=== PATIENT | female | born 1945 | race Caucasian/White ===

== ENCOUNTER → 2016-05-21 | Outpatient (CLI) | payer OTHER, BC ==
[~2016-05-21] VITALS: Ht 157.5 cm; Wt 77.5 kg
[~2016-05-21] MED LIST: AMBIEN 5 MG TABL5 M1 PO; AWAKE200 MG PO; COQ-10100 MG PO; ENDOCET 10-3251 EACH PO; EXCEDRIN CAPLE1 EACH PO; FENTANYL PA25 MCG/HR TRANSDERM; FENTANYL PA50 MCG/HR TRANSDERM; HYDROCORTISONE3011 TP; LEVOTHYROXIN0.112 M1 PO; MS CONTIN15 MG PO; OXYCODONE HCL 55 MG PO; OXYCODONE HCL E10 MG PO; OXYCODONE HCL10 MG PO; OXYCODONE-ACET1 EAC2 PO; OXYCONTIN10 M1 PO; OXYCONTIN15 MG PO; PANTOPRAZOLE SO40 M1 PO; PROBIOTIC1 EAC1 PO; PROTONIX 20 MG20 M1 PO; VENLAFAXINE H37.5 M2 PO; ZOLOFT100 MG PO; [UNRECOGNIZED DRUG - OTHER] PO
--- NOTE | ~2016-05-21 | HPC ---
[facility] [address] [address] PAIN MANAGEMENT CONSULTATION Name: SURENDRA DILLON Room #: REG YUMIKO Shonna.#: [id number] Admission: 05/21/16 Attend Phys: Morris Ponce MD Discharge: Date of : 49 Report #: [id number] THIS REPORT FOR: //name// CC: Judie Ponce DATE OF SERVICE: 05/21/2016 DATE OF REGISTRATION: 05/21/2016 Followup visit for lumbar radiculopathy. The patient reports that over the course of the last couple of months, she has done better than she had ever hoped. Her pain has been low on many occasions, down to 3 or 4. There have been days where she has been able to taper her medication and we discussed that as a good thing. She is currently taking oxycodone extended release 10 mg t.i.d. and uses OxyIR for breakthrough pain 2-3 times a day. There are days when she has not had to use it. There are days when she can break it in half. We discussed the use of medication to help improve day-to-day functions and activities. She is very pleased to use the medication when it allows her to spend more time with family and other activities. With medications, she scores her pain as 3-4/10. She denies any significant current side effects. PHYSICAL EXAMINATION: She is pleasant, alert and oriented without any signs of depression, anxiety, overmedication. Her blood pressure is 130/86, heart rate 75. BMI is 31.2. She has some pain and tenderness across her low back and walks with mild antalgic features. She has new onset neck pain as well. She had neck surgery in 2012. IMPRESSION: 1. Chronic intractable low back pain with radiculopathy. 2. Post-laminectomy syndrome in the thoracic region with persistent thoracic radiculopathy. 3. 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 4. Management of high risk medication. Under terms of our agreement, I have renewed medication and we discussed the opioid crisis in [place] as well as the CDC guidelines. She understands the importance of safeguarding all medications which she will do and I will plan to [facility] [address] [place] [address] PAIN MANAGEMENT CONSULTATION Name: SURENDRA DILLON Room #: REG [facility] Shonna.#: [id number] Admission: 05/21/16 Attend Phys: Morris Ponce MD Discharge: Date of : 49 Report #: [id number] see her back in pain clinic in 3 months. Urine drug screens will be periodically performed. By: [id number] Morris Ponce MD /nt
[2016-05-21 11:23] VITALS: BP 130/86
== END ==
LOC: PAIN 07:09
DX: M54.16 Radiculopathy, lumbar region (principal); G89.29 Other chronic pain; M96.1 Postlaminectomy syndrome, not elsewhere classified; M54.14 Radiculopathy, thoracic region; M47.892 Other spondylosis, cervical region; M47.896 Other spondylosis, lumbar region; F11.20 Opioid dependence, uncomplicated

== ENCOUNTER → 2016-08-17 | Outpatient (CLI) | payer OTHER, BC ==
[~2016-08-17] VITALS: Ht 160 cm; Wt 81.6 kg
[~2016-08-17] MED LIST changes: +CYMBALTA20 MG PO; +VALACYCLOVIR1000 MG PO; +ZOLPIDEM TART12.5 MG PO
[2016-08-17 11:34] VITALS: BP 104/63
== END | disposition home or self-care (01) ==
LOC: PAIN 06:43
DX: M96.1 Postlaminectomy syndrome, not elsewhere classified (principal); M54.16 Radiculopathy, lumbar region

== ENCOUNTER → 2016-10-29 | Outpatient (CLI) | payer OTHER, BC ==
[~2016-10-29] VITALS: Ht 157.5 cm; Wt 81.2 kg
[~2016-10-29] MED LIST changes: +CELEBREX 200 M200 MG PO; +CYMBALTA30 MG PO
--- NOTE | ~2016-10-29 | HPC ---
[facility] [address] [place] [address] PAIN MANAGEMENT CONSULTATION Name: SURENDRA DILLON Room #: REG YUMIKO Shonna.#: [id number] Admission: 10/29/16 Attend Phys: Morris Ponce MD Discharge: Date of : 49 Report #: [id number] THIS REPORT FOR: //name// CC: Judie Ponce DATE OF SERVICE: 10/29/2016 REASON FOR VISIT: Followup visit for chronic back pain. HISTORY OF PRESENT ILLNESS: The patient returns to pain clinic today and complains of pain 6-08/17. She has emotional about her pains has been fatiguing for and interfering with her day-to-day activities. Pain is worsening over the course of the last 6 months and is worse in the morning and any time she tries to do more activity. This is depressing for her. She has had an extensive surgery in the past in [place] as noted in her record. She is contemplating going back to [place] to see if there are other options. I have suggested that she might see another surgeon at [place]. I have recommended Dr. Aroldo Valencia for an evaluation. She was seen by Dr. Ayoub's nurse and received intramuscular injection. This provided no relief, whatsoever. She is on medication under terms of an opioid agreement. Without it, she feels that she would not be able to function. MEDICATIONS: OxyContin 10 mg t.i.d. and oxyIR 10/325 one tablet q. 8 hours as needed for breakthrough pain. She is also on Cymbalta 20 mg per day, zolpidem 2.5 mg at bedtime, pantoprazole, CoQ10, probiotic and Synthroid. PHYSICAL EXAMINATION: VITAL SIGNS: Blood pressure 146/81, heart rate 101, respirations 16 and BMI is 32.7. MUSCULOSKELETAL: She has localized pain in the mid thoracic spine at the top of her scar. She has pain with forward flexion and bending and exacerbating both mid back pain as well as lumbosacral pain. Straight leg raising reproduces some pain into the legs as well. Pain is mostly into the hip. She has no sacroiliac joint pain. IMPRESSION: Chronic intractable back pain, post-laminectomy syndrome. She has had a fusion performed in [place] and I do not have recent x-rays to review. Most recent x-ray is an MRI of the lumbar spine, which shows fixation extending from T1 all the way to the sacrum. This would make her prone to pain throughout the sacroiliac joint as well as in the segments above her fusion. PLAN: I have renewed her medication under terms of our opioid agreement without [address] [address] PAIN MANAGEMENT CONSULTATION Name: SURENDRA DILLON Room #: REG YUMIKO Reina#: [id number] Admission: 10/29/16 Attend Phys: Morris Ponce MD Discharge: Date of : 49 Report #: [id number] increase other than the Cymbalta, which is increased to 30 mg for her depression. She will make an appointment to be seen by Dr. Aroldo Valencia for further evaluation. She may be a candidate for advanced therapies including spinal cord stimulation or intrathecal pump. A transforaminal epidural injection may be of some benefit and I have also suggested epidural injections using that approach. Followup visit planned in 1-2 months. By: [id number] Morris Ponce MD /nt
[2016-10-29 09:17] VITALS: BP 146/81
== END | disposition home or self-care (01) ==
LOC: PAIN 09-07 09:32
DX: M54.5 Low back pain (principal); G89.29 Other chronic pain; M96.1 Postlaminectomy syndrome, not elsewhere classified; Z98.890 Other specified postprocedural states; Z79.891 Long term (current) use of opiate analgesic

== ENCOUNTER → 2017-01-25 | Outpatient (CLI) | payer OTHER, BC ==
[~2017-01-25] VITALS: Ht 157.5 cm; Wt 81.5 kg
[~2017-01-25] MED LIST changes: +CYMBALTA60 MG PO
--- NOTE | ~2017-01-25 | HPC ---
[facility] [address] [place] [address] PAIN MANAGEMENT CONSULTATION Name: SURENDRA DILLON Room #: REG Vanessa M..#: [id number] Admission: 01/25/17 Attend Phys: Morris Ponce MD Discharge: Date of : 49 Report #: [id number] THIS REPORT FOR: //name// CC: Judie Ponce DATE OF SERVICE: 01/25/2017 Followup visit for chronic low back pain status post laminectomy. The patient is getting ready to go to [place]. We talked about this a month ago. She is on an opioid agreement with our clinic. She is on OxyContin 10 mg 3 times a day and oxycodone 10 twice a day. This totals 250 mg of oxycodone or 75 morphine equivalents per day. This has done a beautiful job of managing her post-laminectomy syndrome. She has remained active. She has been able to travel. She has been much happier since her pain has been under control. She has no significant side effects. She understands that the opioids are serious issue in the [place] and she has responsibilities to manage her medicines carefully. We discussed the CDC guidelines of opioid risks. We discussed the opioid crisis in [place] and our opioid agreement in some detail today. We discussed how she may be able to take her medication with her out of the country and how she will not run out of medication hopefully, when she is gone. She will be gone for a couple of months. I plan to see her back. Overall, her pain score is a 5, which is manageable for her dull pain mostly in her mid back, low back, neck and hip. She is able to function quite well with this. She has no significant other changes in her medical history, which was reviewed. All medications reviewed and reconciled. PQRS statement is as above. She does not smoke. Osteoarthritis has been noted. She is not a fall risk. PHYSICAL EXAMINATION: VITAL SIGNS: Blood pressure 128/79, heart rate 80, respirations 16. BMI is 32.8. She is a little overweight. We talked about weight loss techniques. She is able to move from sitting to standing position. Her scars are mildly tender. She has some pain in her legs with straight leg raising. IMPRESSION: 1. Chronic intractable low back pain, post-laminectomy syndrome. 2. Management of high risk medications under terms of written opioid agreement. PLAN: A 25 minutes of counseling. Medications [place] [address] PAIN MANAGEMENT CONSULTATION Name: SURENDRA DILLON Room #: REG [facility].#: [id number] Admission: 01/25/17 Attend Phys: Morris Ponce MD Discharge: Date of : 49 Report #: [id number] agreement. OxyContin 10 mg t.i.d., oxycodone 10 mg for breakthrough b.i.d. I will see her when she comes back from [place]. By: [id number] Morris Ponce MD /mike
[2017-01-25 10:56] VITALS: BP 128/79
== END ==
LOC: PAIN 07:09
DX: G89.29 Other chronic pain (principal); M54.5 Low back pain; Z79.899 Other long term (current) drug therapy

== ENCOUNTER → 2017-07-29 | Outpatient (CLI) | payer OTHER, BC ==
[~2017-07-29] VITALS: Ht 157.5 cm; Wt 75.3 kg
[~2017-07-29] MED LIST changes: +AMITRIPTYLINE H25 M2 PO; +LIPITOR80 MG PO
--- NOTE | ~2017-07-29 | HPC ---
[facility] [address] [address] PAIN MANAGEMENT CONSULTATION Name: SURENDRA DILLON Room #: REG [facility] M..#: [id number] Admission: 07/29/17 Attend Phys: Morris Ponce MD Discharge: Date of : 49 Report #: [id number] THIS REPORT FOR: //name// CC: Judie Ponce DATE OF SERVICE: 07/29/2017 HISTORY OF PRESENT ILLNESS: Followup visit for post-laminectomy syndrome. The patient returns to pain clinic today for renewal of medication. I provide for her under terms of an opioid agreement, OxyContin 10 mg t.i.d. and OxyIR 10 mg twice a day for breakthrough pain. She has done pretty well with her medication and when she feels without it, she would not be able to function at all. She has been able to take trips and be involved in family activities as a result of good pain control. She is worried, however, that she has a trip planned to [place] where she will be meeting family. She also has a physician that she sees there who actually initiated oxycodone for her following surgery that was performed in [place]. We talked today about providing careful medication for her and timing it such that she will have enough medication to get through her trip. I have made 1 suggestion and that is that she go to OxyContin twice a day, which is normally prescribed, and use the OxyIR 2-3 times a day for breakthrough pain using the lowest effective dose. She definitely notices improvement when she takes the IR before activities and I think this would be better use of the 15 mg of oxycodone taken per day or 75 morphine milligram equivalents. PQRS review is completed. She is not a fall risk. She is on an opioid and on opioid agreement, which has been signed. She does not smoke or use alcohol. She is not hypertensive. She does have osteoarthritis involving the left knee, left hip and shoulders. Functional assessment tool is not bad at 33/70. Pain intensity 3-4/10 with medication. BMI 30.2. She tries to keep her weight down by watching her diet. IMPRESSION: 1. Chronic intractable back pain, post-laminectomy syndrome. 2. Management of high risk medications under terms of an opioid agreement. We reviewed in some detail today over the 25-minute followup visit the CDC guidelines, which we follow. I showed her graphically where her dose was and her goal of using the lowest effective dose. The importance of safeguarding medications was discussed. I reviewed her last drug screen, which is appropriate about 14 months ago. I will repeat those at my discretion. [address] [address] PAIN MANAGEMENT CONSULTATION Name: SURENDRA DILLON Room #: REG YUMIKO Reina#: [id number] Admission: 07/29/17 Attend Phys: Morris Ponce MD Discharge: Date of : 49 Report #: [id number] PLAN: Medications will be prescribed as above for the next 3 months and I plan to see her back in the pain clinic sometime in September or October. By: [id number] Morris Ponce MD /nt
[2017-07-29 14:47] VITALS: BP 124/80
== END ==
LOC: PAIN 07:08
DX: Z09 Encounter for follow-up examination after completed treatment for conditions other than malignant neoplasm (principal); M96.1 Postlaminectomy syndrome, not elsewhere classified; G89.4 Chronic pain syndrome; Z79.899 Other long term (current) drug therapy

== ENCOUNTER → 2017-12-20 | Outpatient (CLI) | payer OTHER, BC ==
[~2017-12-20] VITALS: Ht 157.5 cm; Wt 68.5 kg
[~2017-12-20] MED LIST changes: +AMITRIPTYLINE H10 M3 PO; +WELLBUTRIN XL300 MG PO
--- NOTE | ~2017-12-20 | HPC ---
[facility] [address] [place] [address] PAIN MANAGEMENT CONSULTATION Name: SURENDRA DILLON Room #: REG [facility] [id number] Admission: 12/20/17 Attend Phys: Kyar Reyes Discharge: Date of : 49 Report #: [id number] THIS REPORT FOR: //name// CC: Kyra Mckoy DATE OF SERVICE: 12/20/2017 CHIEF COMPLAINT: The patient is here for her chronic back pain, post-laminectomy syndrome. HISTORY OF PRESENT ILLNESS: The patient returns to the clinic today for renewal of her medications. She is under contract with Dr. Morris Ponce for her OxyContin 10 mg twice a day and her OxyIR 10 mg 3 times a day for breakthrough pain. The patient tells me that her pain score is 5/10 today, which is an average pain score. Her pain is in her mid to lower back, occasionally in her neck and today her left shoulder. She tells me that her left hip and leg, knee have gotten better. She is thinking about getting an injection in her shoulder because she is finding it very difficult to raise her arm, lift it above her head to do her hair or anything that requires reaching over her head, that she is trying to prolong that injection as long as possible with Dr. Morris Ponce. She tells me her worst pain is with walking and standing and better when she is lying down and does her leg exercises. The patient denies constipation. She states that she uses probiotic and does not have any daytime sleepiness. She tells me she will be leaving to go to [place] on 02/05/2018, unsure how long she will be gone. ALLERGIES: No known drug allergies. CURRENT MEDICATIONS: Wellbutrin XL 300 mg tablets once a day, OxyIR 10 mg 3 times a day, OxyContin 10 mg twice a day, Elavil 10 mg at bedtime, Lipitor 80 mg daily, valacyclovir 1000 mg daily, Ambien 12.5 at bedtime, Protonix 20 mg daily, probiotic daily, and Synthroid 112 mcg daily. PQRS: 1. The patient has a history of lower extremity and left upper extremity osteoarthritis and denies rheumatoid arthritis. 2. Height is 5 feet 2 inches, weight is 151 pounds. BMI is 27.6. 3. Vital signs: Blood pressure is 125/76, pulse is 106, respirations 16, oxygen sat is 100%. 4. Pain intensity is 5/10. 5. Fall risk, she denies. She does not need help walking or standing and has not fallen in the last 3 months. 6. The patient is not on any blood thinners, does not have hypertension. 7. Opioid therapy is greater than 6 weeks, therefore, an opioid signed contract [address] [address] PAIN MANAGEMENT CONSULTATION Name: SURENDRA IDLLON Room #: REG Vanessa Reina#: [id number] Admission: 12/20/17 Attend Phys: Kyra Reyes Discharge: Date of : 49 Report #: [id number] is on the chart. 8. Her risk assessment tool is low. Her functional assessment is 50/70. 9. Recreational drug use, the patient denies. She states that she does not smoke and does not drink alcohol. We checked the [place] drug monitoring system and the patient's last fill was on 11/25/2017 and she is slightly early for her fill from Dr. Vale Maria the last time, otherwise, Dr. Ponce is her only other doctor filling narcotics. The patient tells me that she safeguards her medications. OBJECTIVE: GENERAL: The patient is a well-developed, well-nourished white female, appears her stated age. She is alert and oriented x 3. Affect is appropriate. HEENT: Normocephalic, atraumatic. Extraocular eye muscles are intact. NECK: Good range of motion. EXTREMITIES: Upper extremities strength to be judged 5/5 all major muscle groups. Lower extremities, osteoarthritic involving her knees, left hip and shoulders, but strength seems to be equal at 5/5. IMPRESSION: 1. Chronic intractable back pain. 2. Post-laminectomy syndrome. 3. Management of high risk medications in terms of generated. We reviewed the fact that opiate medications are being used to provide analgesia adequate to support activities of daily living, not attempting to achieve a specific pain score on the 0-10 Visual Analog Scale. The current opiate medications are providing sufficient analgesia to allow the patient to participate in activities of daily living. The patient is not exhibiting any aberrant behavior suggestive of drug diversion. The patient is not having any adverse reactions to medications. The patient is not suffering from daytime somnolence or mental acuity changes. The patient is managing opiate-induced constipation with appropriate foru-pff-srmvliz agents and dietary considerations. The patient was counseled on concern for caution with operating a motor vehicle while using opiate medications. A physical exam was performed and the patient's functional status was evaluated. All patients with back pain were advised against the bed rest greater than 4 days and were advised to return to normal activities. Pain score assessment was noted and the treatment plan was reviewed with the patient. All current medications, both prescribed and OTC were reviewed and reconciled on the electronic medical record. Tobacco screening was accomplished and smoking cessation was advised when indicated. BMI was noted and diet/exercise modification was recommended for all patients following outside normal parameters. [facility] [address] [place] [address] PAIN MANAGEMENT CONSULTATION Name: SURENDRA DILLON [facility] [id number] Admission: 12/20/17 Attend Phys: Kyra Reyes Discharge: Date of : 49 Report #: [id number] I reviewed with the patient today their responsibilities to safeguard prescription medications, reviewed their responsibility to utilize medications only as prescribed by the physician. They are to seek and receive pain medications only from 1 physician group ( [facility]). They are to use 1 pharmacy and keep the clinic informed if they change pharmacies. Their responsibilities include making followup visits in a timely fashion and to avoid abrupt discontinuation of medication usage. Their responsibilities further include bringing their medications (bottles from the pharmacy with residual pills) to the visit for possible confirmation of pill counts and the patient understands it is their responsibility to submit to random drug screens to ensure both that the medications prescribed are present, and that no other controlled substances are present. All prescriptions provided today were generated electronically. PLAN: 1. The patient returns today for a refill of her current medications. She tells me that she was doing better when she was taking OxyContin 3 times a day 10 mg tablets and her breakthrough pain medicine of 10 mg twice a day. She states that she travels quite extensively and has been recently even using a few of the medicines that she had gotten from her doctor when she goes to [place] because the pain has been intensified at times and she feels like she needs to be on her longer-acting medicines, tells me that has end of dose failure. The patient is requesting to go back to her previous doses. 2. We discussed the patient's [facility] MME guidelines and that she is at 75 mEq today. Even if she goes back to her previous way of doing it, which is 3 long-acting a day and 2 short acting, she still remains the same mEq per day. I discussed this with Dr. Morris Ponce and he is agreeable to return to her previous doses. 3. Her last buccal screen was more than a year old and it was appropriate at that time that we will recheck it today since it has been greater than a year. The patient is agreeable with this plan of care. Scripts given today for OxyContin 10 mg, #90, to be released today and again in 4 weeks. Second medication was OxyIR 10 mg, #60 to be released today and again in 4 weeks. The patient was made an appointment for 02/03/2018 with myself prior to going to [place] for her vacation. At that time, we will give her a vacation fill. The patient was seen in collaboration with Dr. Morris Ponce. <ELECTRONICALLY SIGNED> By: Kyra Reyes 12/21/17 0719 [id number] Kyra Reyes /nt
[2017-12-20 13:44] VITALS: BP 125/76
== END ==
LOC: PAIN 07:17
DX: M54.5 Low back pain (principal); M96.1 Postlaminectomy syndrome, not elsewhere classified; G89.29 Other chronic pain; Z79.899 Other long term (current) drug therapy

== ENCOUNTER → 2018-02-03 | Outpatient (CLI) | payer OTHER, BC ==
[~2018-02-03] VITALS: Ht 160 cm; Wt 67.0 kg
[~2018-02-03] MED LIST changes: +VOLTAREN GEL 1100 G2 TOP
[2018-02-03 11:01] VITALS: BP 126/74
--- NOTE | 2018-02-03 11:07 | NUR ---
Pain Clinic Assessment: 1. History of Osteoarthritis: Left Lower Extremity Left Upper Extremity History of Rheumatoid Arthritis: Not Applicable 2. Height: 5 ft. 3 in. 160.0 cm. Weight: 147.8 lb. oz. 67.042 kg. Patient's BMI: 26.2 3. Vital Signs: BP: 126/74 Pulse: 104 Resp: 18 Temp: 02 Sat: 93 ECG Mon: 4. Pain Intensity: 4-5 5. Fall Risk: Dizziness: N Needs help standing or walking: N Fallen in the last 3 months: N Fall risk comments: 6. Patient on Blood Thinner: None 7. History of Hypertension: N 8. Opioid Therapy greater than 6 weeks: Y Opiate Contract Signed: 03/24/16 9. Risk Assessment Tool Provided: low risk 10. Functional Assessment Tool: 11. Recreational Drug Use: Never Drug Type: Tobacco Use: Never Smoker Tobacco Type: Amount or Packs/day: How Many Years: Alcohol Use: No Frequency: Quant:
--- NOTE | 2018-02-09 10:09 | HPC ---
[facility] [address] [place] [address] PAIN MANAGEMENT CONSULTATION Name: SURENDRA DILLON Room #: REG [facility] MWalker.#: [id number] Admission: 02/03/18 Attend Phys: Kyra Reyes Discharge: Date of : 49 Report #: [id number] THIS REPORT FOR: //name// CC: [facility] Reyes [facility] DATE OF SERVICE: 02/03/2018 CHIEF COMPLAINT: Chronic back pain, post-laminectomy syndrome and left shoulder pain. HISTORY OF PRESENT ILLNESS: The patient returns to the Pain Clinic today for renewal of her pain medications. The patient tells me that her left shoulder has been bothering her also quite a bit today, though is a fairly good day for the left shoulder pain. Most of her pain is at bra line in her mid-back. At the last visit, we did change her long-acting to 3 times a day and reduce her short-acting to twice a day. The patient would like to go back to long-acting twice a day and short-acting 3 times a day. She found that this was more helpful to take her breakthrough slightly more during the day. The patient tells me that she is going to see a tree specialist due to her shoulder pain and hand pain, very arthritic, per the suggestion of her primary care doctor. She also had been seeing a psychiatrist that has given her Wellbutrin. She has been on it about 6 weeks, has not noticed any change in her depression from this medicine. She thinks that it kind of makes her feel bad. She is attempting to find another psychiatrist to say because she does not feel that this one is a good match for her. The patient is leaving on Wednesday for [place] and is here today for a refill of her medications and a vacation fill. ALLERGIES: No known drug allergies. CURRENT LIST OF MEDICATIONS: OxyIR 10 mg twice a day, OxyContin 10 mg 3 times a day, Wellbutrin 300 mg ER daily, atorvastatin 80 mg daily, valacyclovir 2 tablets twice a day, Ambien 12.5 at bedtime, Protonix 20 mg twice a day, Lactobacillus 3 tablets a day, Synthroid 112 mcg a day. PQRS: 1. History of osteoarthritis in her lower extremities and her hands and shoulder. Denies rheumatoid arthritis. 2. Height is 5 feet 3 inches, weight is 147, BMI is 26.2. 3. Vital signs: Blood pressure 126/74, pulse is 104, respirations 18, oxygen sat is 93. 4. Pain score 4/5. 5. Fall risk: Denies dizziness, does not need help walking or standing, has not fallen in the last 3 months. 6. The patient denies blood thinners, does not take antihypertensive medicines. 7. Opioid therapy is greater than 6 weeks. Therefore, an opioid signed [address] [address] PAIN MANAGEMENT CONSULTATION Name: SURENDRA DILLON [id number] Admission: 02/03/18 Attend Phys: Kyra Reyes Discharge: Date of : 49 Report #: [id number] contract is on the chart. 8. Risk assessment tool is low. Her functional assessment is 50/70. 9. Recreational drug use, patient denies. She is not a smoker and does not drink alcohol. We did check the prescription monitoring system. The patient is filling appropriately and is current on her pain medicines for appropriate fills. We did check a drug screen on her last visit that is appropriate with the medications she is being provided. The patient tells me she does safeguard her medications. PHYSICAL EXAMINATION: GENERAL: This is a well-developed, well-nourished white female that appears her stated age. She is alert and orientated x 3. Affect is appropriate. HEENT: Normocephalic, atraumatic. Extraocular eye muscles are intact. NECK: Without JVD or adenopathy. EXTREMITIES: Upper extremity strength judged to be 5/5 in all major muscle groups. Does have arthritic nodules on her hands bilaterally. Left shoulder tenderness. Lower extremities, arthritic pain in her knees and hip. Her lower extremity strength judged to be 5/5 in all of her major muscle groups. IMPRESSION: 1. Chronic intractable back pain. 2. Post-laminectomy syndrome. 3. Osteoarthritis. 4. Management of high risk medications in terms of opioid agreement. We reviewed the fact that opiate medications are being used to provide analgesia adequate to support activities of daily living, not attempting to achieve a specific pain score on the 0-10 Visual Analog Scale. The current opiate medications are providing sufficient analgesia to allow the patient to participate in activities of daily living. The patient is not exhibiting any aberrant behavior suggestive of drug diversion. The patient is not having any adverse reactions to medications. The patient is not suffering from daytime somnolence or mental acuity changes. The patient is managing opiate-induced constipation with appropriate zzvj-gsn-wvvvegn agents and dietary considerations. The patient was counseled on concern for caution with operating a motor vehicle while using opiate medications. A physical exam was performed and the patient's functional status was evaluated. All patients with back pain were advised against the bed rest greater than 4 days and were advised to return to normal activities. Pain score assessment was noted and the treatment plan was reviewed with the patient. All current medications, both prescribed and OTC were reviewed and reconciled on the electronic medical record. Tobacco screening was accomplished and smoking cessation was advised when indicated. BMI was noted and diet/exercise modification was recommended for all patients following outside normal parameters. [facility] [address] [place] [address] PAIN MANAGEMENT CONSULTATION Name: SURENDRA DILLON Room #: REG [facility].#: [id number] Admission: 02/03/18 Attend Phys: Kyra Reyes Discharge: Date of : 49 Report #: [id number] I reviewed with the patient today their responsibilities to safeguard prescription medications, reviewed their responsibility to utilize medications only as prescribed by the physician. They are to seek and receive pain medications only from 1 physician group ( [facility] They are to use 1 pharmacy and keep the clinic informed if they change pharmacies. Their responsibilities include making followup visits in a timely fashion and to avoid abrupt discontinuation of medication usage. Their responsibilities further include bringing their medications (bottles from the pharmacy with residual pills) to the visit for possible confirmation of pill counts and the patient understands it is their responsibility to submit to random drug screens to ensure both that the medications prescribed are present, and that no other controlled substances are present. All prescriptions provided today were generated electronically. PLAN: 1. The patient returns today to discuss treatment options. The patient tells me that she would like to return back to her OxyContin 10 mg twice a day and her oxycodone IR 3 times a day. She previously been on this and thought that maybe it was going to be helpful, but thinks her previous way of taking her medications worked up better in controlling her pain. Scripts given today for OxyContin 10 mg ER b.i.d., #60 for today and 4 weeks; OxyContin 10 mg IR, #90 three times a day for today and 4 weeks. She will fill today's script, which is 2 weeks early vacation fill since she is going to [place] on Wednesday. 2. The patient denies any constipation or daytime sleepiness. She does take stool softeners as needed. 3. We discussed in depth about her arthritic changes. Her primary care doctor had suggested tree specialist. I agree that may be good for patient to seek out one when she returns from her trip. In the meantime, we discussed nonsteroidal anti-inflammatories. The patient worried about side effects, especially GI problems. We decided that we will give a trial of Voltaren gel. The patient to use that on her shoulder and knees and the hands as needed. 4. The patient may go to [place] from [place] and [facility]. She has not decided. She is worried that she may not have enough medicines to fill for all these because she has a problem filling scripts in [place]. She is not able to fill our scripts there. The patient may exchange her 4-week script with her [place] doctor and then the patient was instructed to bring all documentation of that visit and her medicines with her when she returns. The patient is unsure if she is even going to go on that trip, but this is a plan. In case that happens, the patient will be seen here in 2-1/2 months for a refill of her medications. The patient is seen today in collaboration with Dr. Morris Ponce. <ELECTRONICALLY SIGNED> By: Kyra Reyes 02/09/18 1009 [id number] Kyra Reyes /mike
== END ==
LOC: PAIN 07:41
DX: G89.4 Chronic pain syndrome (principal); M54.5 Low back pain; M19.90 Unspecified osteoarthritis, unspecified site; M96.1 Postlaminectomy syndrome, not elsewhere classified; Z79.891 Long term (current) use of opiate analgesic

== ENCOUNTER → 2018-03-28 | Outpatient (CLI) | payer OTHER, BC ==
[~2018-03-28] VITALS: Ht 157.5 cm; Wt 66.6 kg
[2018-03-28 10:49] VITALS: BP 139/69
--- NOTE | 2018-03-28 10:51 | NUR ---
Pain Clinic Assessment: 1. History of Osteoarthritis: Left Lower Extremity Left Upper Extremity History of Rheumatoid Arthritis: Not Applicable 2. Height: 5 ft. 2 in. 157.5 cm. Weight: 146.8 lb. oz. 66.588 kg. Patient's BMI: 26.8 3. Vital Signs: BP: 139/69 Pulse: 5 Resp: 16 Temp: 02 Sat: 96 ECG Mon: 4. Pain Intensity: 6 5. Fall Risk: Dizziness: N Needs help standing or walking: N Fallen in the last 3 months: N Fall risk comments: 6. Patient on Blood Thinner: None 7. History of Hypertension: N 8. Opioid Therapy greater than 6 weeks: Y Opiate Contract Signed: 03/24/16 9. Risk Assessment Tool Provided: low risk 10. Functional Assessment Tool: 11. Recreational Drug Use: Never Drug Type: Tobacco Use: Never Smoker Tobacco Type: Amount or Packs/day: How Many Years: Alcohol Use: No Frequency: Quant:
--- NOTE | 2018-03-29 08:55 | HPC ---
[facility] [address] [place] [address] PAIN MANAGEMENT CONSULTATION Name: SURENDRA DILLON Room #: REG [facility]..#: [id number] Admission: 03/28/18 ������������������ Attend Phys: Kyra Reyes Discharge: ������������������ Date of : 49 Report #: [id number] THIS REPORT FOR: //name// CC: Kyra Reyes [facility] DATE OF SERVICE: 03/28/2018 CHIEF COMPLAINT: Chronic low back pain, post-laminectomy syndrome and left shoulder pain. HISTORY OF PRESENT ILLNESS: The patient returns to the pain clinic today for a refill of her medications. She had recently been in [place] for the past 2 months, was able to fill her medications prior to leaving and then was unable to fill them in [place], did have them filled here since [place] would not fill her medications from a doctor in the [place]. The patient does complain of severe left shoulder pain, which has been ongoing for several months. The patient questions about an injection either from Dr. Morris Ponce or from her orthopedic doctor. She also does complain of mid back pain, worse with walking, standing and moving her arm. Her pain is a 6/10 today. She denies any constipation presently. She tells me that she is very active and does exercising and walking and has just come from the gym today. ALLERGIES: No known drug allergies. MEDICATIONS: Voltaren gel as needed, OxyIR 10 mg 3 times a day, OxyContin 10 mg twice a day, Wellbutrin XL 300 mg daily, atorvastatin 80 mg daily, valacyclovir 1000 mg as needed, Ambien 12.5 mg at bedtime, Protonix 20 mg b.i.d., Lactobacillus 3 capsules daily, Synthroid 112 mcg daily. PQRS: 1. She does have osteoarthritis in her lower extremities and left upper extremity. She is not being treated for rheumatoid arthritis. 2. Height 5 feet 2 inches, weight is 146, BMI is 26.8. 3. Vital signs: Blood pressure 139/69, pulse is 104, respirations 16, oxygen sat is 96. 4. Pain score at 6/10. 5. Fall risk: Denies dizziness, does not need help walking or standing, has not fallen in the last 3 months. 6. The patient is not on any blood thinners. She does not take medicines for hypertension. 7. Opiate therapy is greater than 6 weeks. Therefore, an opioid signed contract is on the chart. 8. Risk assessment tool is low. Her functional assessment is 50/70. 9. Recreational drug use, she denies. She is not a smoker and does not drink alcohol. We did check the prescription monitoring system. The patient is [address] [address] PAIN MANAGEMENT CONSULTATION Name: CORINNESURENDRA COFFMAN ZACH Room #: REG [facility] Reina#: [id number] Admission: 03/28/18 ������������������ Attend Phys: Kyra Reyes Discharge: ������������������ Date of : 49 Report #: [id number] filling appropriately with her medications appropriate time. She tells me she safeguards her medicines at all times. There is a buccal drug screen that was done 3 months ago that was appropriate for the medications that she is taking. PHYSICAL EXAMINATION: GENERAL: This is a well-developed, well-nourished white female who appears her stated age. She is alert and orientated x 3. Her affect is appropriate. HEENT: Normocephalic, atraumatic. Extraocular eye muscles are intact. EXTREMITIES: Upper extremity strength judged to be 5/5 in all major muscle groups. Does complain of some left shoulder tenderness today with range of motion. Lower extremity strength judged to be 5/5 in all major muscle groups. IMPRESSION: 1. Chronic intractable back pain. 2. Post-laminectomy syndrome. 3. Left shoulder pain. 4. Osteoarthritis. 5. Management of high risk medications in terms of written opioid agreement. We reviewed the fact that opiate medications are being used to provide analgesia adequate to support activities of daily living, not attempting to achieve a specific pain score on the 0-10 Visual Analog Scale. The current opiate medications are providing sufficient analgesia to allow the patient to participate in activities of daily living. The patient is not exhibiting any aberrant behavior suggestive of drug diversion. The patient is not having any adverse reactions to medications. The patient is not suffering from daytime somnolence or mental acuity changes. The patient is managing opiate-induced constipation with appropriate pwxv-fkr-llmnhba agents and dietary considerations. The patient was counseled on concern for caution with operating a motor vehicle while using opiate medications. A physical exam was performed and the patient's functional status was evaluated. All patients with back pain were advised against the bed rest greater than 4 days and were advised to return to normal activities. Pain score assessment was noted and the treatment plan was reviewed with the patient. All current medications, both prescribed and OTC were reviewed and reconciled on the electronic medical record. Tobacco screening was accomplished and smoking cessation was advised when indicated. BMI was noted and diet/exercise modification was recommended for all patients following outside normal parameters. I reviewed with the patient today their responsibilities to safeguard prescription medications, reviewed their responsibility to utilize medications only as prescribed by the physician. They are to seek and receive pain medications only from 1 physician group ([facility]). They are to use 1 pharmacy and keep the clinic informed if they change pharmacies. Their [address] [place] [address] PAIN MANAGEMENT CONSULTATION Name: SURENDRA DILLON Room #: REG [facility].#: [id number] Admission: 03/28/18 ������������������ Attend Phys: Kyra LISANDRO Reyes Discharge: ������������������ Date of : 49 Report #: [id number] responsibilities include making followup visits in a timely fashion and to avoid abrupt discontinuation of medication usage. Their responsibilities further include bringing their medications (bottles from the pharmacy with residual pills) to the visit for possible confirmation of pill counts and the patient understands it is their responsibility to submit to random drug screens to ensure both that the medications prescribed are present, and that no other controlled substances are present. All prescriptions provided today were generated electronically. PLAN: 1. We discussed treatment options with the patient today. The patient tells me that her left shoulder is still hurting. She would like to get an injection by Dr. Ponce. I informed the patient that we can make an appointment for her to have an injection. She tells me that she is also seeing her Orthopedics next week. She may ask them to do it. If they do not perform the injection, then she will make an appointment with Dr. Morris Ponce for left shoulder injection. 2. Script given today of: A. OxyIR 10 mg t.i.d., #90 for release today and 4 weeks. B. OxyContin 10 mg b.i.d., #60 for today and 4-week release. The patient does not need Voltaren gel today. 3. The patient will be seen in 2-month followup. Care given today in collaboration with Dr. Morris Ponce. ��������������������������������������������� <ELECTRONICALLY SIGNED> ���������������������������������������� By: Kyra Reyes ��������������������������������������������� 03/29/18 0855 [id number] Kyra Reyes /nt
== END ==
LOC: PAIN 07:05
DX: G89.4 Chronic pain syndrome (principal); M96.1 Postlaminectomy syndrome, not elsewhere classified; M25.512 Pain in left shoulder; M19.90 Unspecified osteoarthritis, unspecified site; Z79.899 Other long term (current) drug therapy

== ENCOUNTER → 2018-06-06 | Outpatient (CLI) | payer OTHER, BC ==
[~2018-06-06] VITALS: Ht 157.5 cm; Wt 67.0 kg
[~2018-06-06] MED LIST changes: +MOBIC7.5 MG PO
--- NOTE | ~2018-06-06 | HPC ---
[facility] [address] [place] [address] PAIN MANAGEMENT CONSULTATION Name: SURENDRA DILLON Room #: REG [facility].#: [id number] Admission: 06/06/18 ������������������ Attend Phys: Morris Ponce MD Discharge: ������������������ Date of : 49 Report #: [id number] THIS REPORT FOR: //name// CC: KEON Ponce DATE OF SERVICE: 06/06/2018 CHIEF COMPLAINT: Followup visit for chronic low back pain, post laminectomy syndrome and management of high risk medications. HISTORY OF PRESENT ILLNESS: This is a 2-month followup visit for the patient who is receiving medications from our clinic under terms of a written opioid agreement. Her current daily dose of medication is OxyContin 10 mg twice daily and OxyIR 10 mg 1 tablet 3 times daily before activities and for breakthrough after severe episodes of pain. She has previously done well with this combination of medications, barely over utilizing it. She spent much of the last 2 months in her apartment in [facility]. She has had some increases in pain, however, and the pain requires her to take more of her breakthrough medication. She has been out for 3 days. We have calculated her MME for her on each visit and have checked her medication use on the prescription drug monitoring program. There have been no unexpected entries. Her MME calculation is at 65. She complains of pain mostly in her mid back as she describes it around her bra line, and it radiates up into her shoulder, worse on the left. It is constant, does not go away. She calls it a 6/10, and it is increased with any movements of her left arm. Medication does indeed provide relief and she is grateful for it. Without it, she would not be able to be as active. She has no significant side effects. She safeguards her medication carefully under terms of our agreement. She receives it also from one clinic. She has taken meloxicam in the past, but is cautious because of GI issues. We talked today about a trial of Celebrex, which she can take either every day for a short time or intermittently. We had a lengthy discussion about the differences between NIELSON-2 inhibiting anti-inflammatory medications and the more common nonsteroidal anti-inflammatory drugs. She will remain well hydrated and is cautious about any chest pain issues. All medications have been reviewed and reconciled. PHYSICAL EXAMINATION: VITAL SIGNS: Her blood pressure is 126/79, heart rate 72, respirations 16. BMI is 27.0. [facility] [address] [place] [address] PAIN MANAGEMENT CONSULTATION Name: SURENDRA DILLON Room #: REG [facility]#: [id number] Admission: 06/06/18 ������������������ Attend Phys: Morris Ponce MD Discharge: ������������������ Date of : 49 Report #: [id number] GENERAL: She moves easily from sitting to standing position. She ambulates without antalgic features. CHEST: Clear. CARDIAC: Rhythm is regular. MUSCULOSKELETAL: She has tenderness across her low back as well as in the mid back region. Range of motion of the spine is diminished in extension, which increases her pain. In completion of the PQRS, it should be noted that she is not on blood thinning medications that she is not a fall risk and has not fallen in the last 3 months. She denies use of tobacco or alcohol. She has completed an opioid risk tool and is considered at low risk. Her functional assessment score remains around 50 indicating significant interference of day-to-day activities by her chronic pain. IMPRESSION: 1. Chronic intractable low back pain, post-laminectomy syndrome. 2. Chronic mid back pain, likely spondylitic. 3. Left shoulder pain arthropathy and osteoarthritis. 4. Management of high risk medications. I renewed her medications for 2 months. We will follow up through our management program in the clinic. She has developed some tolerance to medication effects, but I would prefer to have her take some drug holiday and try a supplement with the anti-inflammatory rather than increase her oxycodone dose at this time. We may consider opioid rotation. ��������������������������������������������� ���������������������������������������� By: ��������������������������������������������� [id number] Morris Ponce MD /nt
[2018-06-06 11:28] VITALS: BP 126/79
--- NOTE | 2018-06-06 11:40 | NUR ---
Pain Clinic Assessment: 1. History of Osteoarthritis: Left Lower Extremity Left Upper Extremity History of Rheumatoid Arthritis: Not Applicable 2. Height: 5 ft. 2 in. 157.5 cm. Weight: 147.8 lb. oz. 67.042 kg. Patient's BMI: 27.0 3. Vital Signs: BP: 126/79 Pulse: 72 Resp: 16 Temp: 02 Sat: 100 ECG Mon: 4. Pain Intensity: 6 5. Fall Risk: Dizziness: N Needs help standing or walking: N Fallen in the last 3 months: N Fall risk comments: 6. Patient on Blood Thinner: None 7. History of Hypertension: N 8. Opioid Therapy greater than 6 weeks: Y Opiate Contract Signed: 03/24/16 9. Risk Assessment Tool Provided: low risk 10. Functional Assessment Tool: 50/ 11. Recreational Drug Use: Never Drug Type: Tobacco Use: Never Smoker Tobacco Type: Amount or Packs/day: How Many Years: Alcohol Use: No Frequency: Quant:
== END ==
LOC: PAIN 06:47
DX: G89.29 Other chronic pain (principal); M96.1 Postlaminectomy syndrome, not elsewhere classified; M54.5 Low back pain; M54.6 Pain in thoracic spine; M19.012 Primary osteoarthritis, left shoulder

== ENCOUNTER → 2018-07-28 | Outpatient (CLI) | payer OTHER, BC ==
[~2018-07-28] VITALS: Ht 157.5 cm; Wt 69.5 kg
[2018-07-28 13:15] VITALS: BP 130/77
--- NOTE | 2018-07-28 13:29 | NUR ---
Pain Clinic Assessment: 1. History of Osteoarthritis: Left Lower Extremity Left Upper Extremity History of Rheumatoid Arthritis: Not Applicable 2. Height: 5 ft. 2 in. 157.5 cm. Weight: 153.2 lb. oz. 69.491 kg. Patient's BMI: 28.0 3. Vital Signs: BP: 130/77 Pulse: 82 Resp: 16 Temp: 02 Sat: 99 ECG Mon: 4. Pain Intensity: 4 5. Fall Risk: Dizziness: N Needs help standing or walking: N Fallen in the last 3 months: N Fall risk comments: 6. Patient on Blood Thinner: None 7. History of Hypertension: N 8. Opioid Therapy greater than 6 weeks: Y Opiate Contract Signed: 03/24/16 9. Risk Assessment Tool Provided: low risk 10. Functional Assessment Tool: 50 11. Recreational Drug Use: Never Drug Type: Tobacco Use: Never Smoker Tobacco Type: Amount or Packs/day: How Many Years: Alcohol Use: No Frequency: Quant:
--- NOTE | 2018-08-01 07:19 | HPC ---
[facility] [place] [address] PAIN MANAGEMENT CONSULTATION Name: SURENDRA DILLON [facility] [id number] Admission: 07/28/18 ������������������ Attend Phys: Kyra Reyes Discharge: ������������������ Date of : 49 Report #: [id number] THIS REPORT FOR: //name// CC: Kyra Reyes Judie [facility] DATE OF SERVICE: 07/28/2018 CHIEF COMPLAINT: Chronic low back pain, post-laminectomy syndrome. HISTORY OF PRESENT ILLNESS: This is a medication followup visit for this very pleasant 73-year-old female who sees us every 2 months for her medication refills. She tells me that she was wondering if she could go back to her OxyContin 10 mg 3 times a day and OxyIR 10 mg 2-3 times a day. We occasionally rotate her on these medications. Some time, she does take OxyContin twice a day and sometimes she takes 3 times a day. This has been working for her for several years. This patient's morphine milliequivalent usually stays between 75 and 85, well below the CDC guidelines. The patient rating her pain score today at 4/10, mostly in her mid back and her bilateral shoulders at her bra line. She tells me that she has no problems with constipation. She tells me that her pain is worse with walking and standing or moving her left arm. Her pain is better when she does her exercises as well as uses her medication. The patient tells me that she is getting ready to go on several trips, so she knows that she will be more active that she does safeguard all of her medications when she is traveling. ALLERGIES: No known drug allergies. CURRENT LIST OF MEDICATIONS: OxyContin 10 mg b.i.d., OxyIR 10 mg t.i.d., meloxicam 7.5 mg b.i.d., Wellbutrin 300 mg daily, valacyclovir 1000 mg daily, Ambien at bedtime, Protonix daily, Lactobacillus daily and Synthroid 112 mcg daily. PQRS: 1. She has osteoarthritis in her lower extremities and her left upper extremity. She is being treated for rheumatoid arthritis as well. Height is 5 feet 2 inches, weight is 153, BMI is 28. Vital signs, 130/77, pulse is 82, respirations 16, oxygen sat is 99. Pain score is 4/10. 2. Fall risk. Denies dizziness. She does not need help standing or walking. She has not fallen in the last 3 months. The patient is not on any blood thinners and does not take medicine for hypertension. Her opiate therapy is greater than 6 weeks; therefore, an opioid signed contract is on the chart. Her risk assessment tool is low. Functional assessment 50/70 3. Recreational drug use, she denies. She is not a smoker and does not drink alcohol. [address] [address] PAIN MANAGEMENT CONSULTATION Name: SURENDRA DILLON Room #: REG [facility] Reina#: [id number] Admission: 07/28/18 ������������������ Attend Phys: Kyra Reyes Discharge: ������������������ Date of : 49 Report #: [id number] According to the prescription monitoring system, she is due for her medications in about a week. She tells me she safeguards her medicines at all times. There is also a recent drug screen on the chart that is appropriate for her medications. PHYSICAL EXAMINATION: GENERAL: This is a well-developed, well-nourished, alert and orientated 73-year-old that appears her stated age. Placing her current pain score today at 4/10. HEENT: Normocephalic, atraumatic. Extraocular eye muscles are intact. Mucous membranes are moist. MUSCULOSKELETAL: She has tenderness across her low back as well as in her mid thoracic region under her bra line. Range of motion of the spine is diminished with extension, which increases her pain. She walks with a normal gait. Complains of tenderness in both her shoulders today. IMPRESSION: 1. Chronic intractable low back pain, post-laminectomy syndrome. 2. Chronic mid back pain, spondylitic in nature. 3. 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 4. High risk medication management under terms of written opioid agreement. We reviewed the fact that opiate medications are being used to provide analgesia adequate to support activities of daily living, not attempting to achieve a specific pain score on the 0-10 Visual Analog Scale. The current opiate medications are providing sufficient analgesia to allow the patient to participate in activities of daily living. The patient is not exhibiting any aberrant behavior suggestive of drug diversion. The patient is not having any adverse reactions to medications. The patient is not suffering from daytime somnolence or mental acuity changes. The patient is managing opiate-induced constipation with appropriate [id number] agents and dietary considerations. The patient was counseled on concern for caution with operating a motor vehicle while using opiate medications. A physical exam was performed and the patient's functional status was evaluated. All patients with back pain were advised against the bed rest greater than 4 days and were advised to return to normal activities. Pain score assessment was noted and the treatment plan was reviewed with the patient. All current medications, both prescribed and OTC were reviewed and reconciled on the electronic medical record. Tobacco screening was accomplished and smoking cessation was advised when indicated. BMI was noted and diet/exercise modification was recommended for all patients following outside normal parameters. I reviewed with the patient today their responsibilities to [facility] [address] [place] [address] PAIN MANAGEMENT CONSULTATION Name: SURENDRA DILLON Room #: REG YUM[facility] Layne.Gina.#: [id number] Admission: 07/28/18 ������������������ Attend Phys: Kyra Reyes Discharge: ������������������ Date of : 49 Report #: [id number] prescription medications, reviewed their responsibility to utilize medications only as prescribed by the physician. They are to seek and receive pain medications only from 1 physician group ( [facility]). They are to use 1 pharmacy and keep the clinic informed if they change pharmacies. Their responsibilities include making followup visits in a timely fashion and to avoid abrupt discontinuation of medication usage. Their responsibilities further include bringing their medications (bottles from the pharmacy with residual pills) to the visit for possible confirmation of pill counts and the patient understands it is their responsibility to submit to random drug screens to ensure both that the medications prescribed are present, and that no other controlled substances are present. All prescriptions provided today were generated electronically. PLAN: 1. We discussed treatment options with the patient today. The patient tells me she did switch her anti-inflammatories from Celebrex to meloxicam per the direction of Dr. Tapia. She feels that if she is having some benefit, she would like to rotate back. 2. The patient would like to rotate back to her 3 oxycodone a day and 2-3 OxyIR. Scripts given for OxyContin 10 mg 3 times a day, #90 for today and 4-week release and OxyIR 10 mg #100 for today and 4-week release. This places the patient at 82.5 morphine milligram equivalents under the CDC guidelines. I explained to the patient that we will try this for a short duration and then we will try to decrease back to her previous dose. She verbalizes understanding. 3. The patient is getting ready to travel to [place] and to [place]. I told her to make sure she safeguards her meds at all times. 4. The patient is seen in collaboration with Dr. Morrsi Ponce who did come and see the patient as well today. ��������������������������������������������� <ELECTRONICALLY SIGNED> ���������������������������������������� By: Kyra Reyes ��������������������������������������������� 08/01/18 0719 [id number] Kyra Reyes /nt
== END ==
LOC: PAIN 07:00
DX: M47.816 Spondylosis without myelopathy or radiculopathy, lumbar region (principal); M19.011 Primary osteoarthritis, right shoulder; M19.012 Primary osteoarthritis, left shoulder; G89.4 Chronic pain syndrome; M96.1 Postlaminectomy syndrome, not elsewhere classified; Z79.891 Long term (current) use of opiate analgesic

== ENCOUNTER → 2018-09-01 | Outpatient (CLI) | payer OTHER, BC ==
[~2018-09-01] VITALS: Ht 157.5 cm; Wt 69.3 kg
[~2018-09-01] MED LIST changes: +ERGOCALCIF50000 UNIT PO; +WELLBUTRIN XL150 MG PO
--- NOTE | ~2018-09-01 | HPC ---
[facility] [address] [place] [address] PAIN MANAGEMENT CONSULTATION Name: SURENDRA DILLON Room #: REG YUMIKO Shonna.#: [id number] Admission: 09/01/18 ������������������ Attend Phys: Morris Ponce MD Discharge: ������������������ Date of : 49 Report #: [id number] THIS REPORT FOR: //name// CC: Dr. Leelee Ponce DATE OF SERVICE: 09/01/2018 Followup visit for chronic intractable pain. The patient is status post laminectomy and fusion, now complaining bitterly of pain at the top edge of her fusion, radiating in a radicular pattern to the right. The patient cried through the first half of her pain clinic visit today. She is scoring her pain as a 7/10, constant. She has been seeing a physical therapist. She also has pain that extends along her scar. Most of her pain, however, is at the top edge radiating in the lower thoracic dermatomal distribution. She cannot really escape the pain except with oxycodone and she is currently on an opioid agreement, oxycodone extended release 10 mg 3 times daily is supplemented on an as needed basis with 10 mg, which has been taken anywhere from 3-4 times a day. She relies on it function. Without it, she does not feel that she could not get out of the house. She has not had injections. We have discussed them in the past. She has been reluctant to get injections, but I believe that an epidural injection in the thoracic region at the upper level of her scar may be worth a try to treat the radicular component discussed risks and benefits. PQRS: 1. Positive for osteoarthritis involving upper and lower extremity joints. 2. BMI is 27.9. 3. Blood pressure 133/74, heart rate 87, and respirations 16. 4. Pain intensity is 6-7/10, constant. 5. No falls in the last 3 months. She is not a fall risk. 6. No blood thinning medications. 7. Denies history of hypertension. All medications are reviewed and reconciled from the electronic medical record including her opioids, Wellbutrin, valacyclovir, zolpidem, pantoprazole, probiotic, and Synthroid. 8. She is on an opioid agreement, which has been signed and reviewed on more than one occasion. She has had drug testing, which is appropriate and we have checked the prescription drug monitoring program and there are no unexpected entries. She has completed the opioid risk assessment tool and is at low risk. 9. Functional assessment tool score is 50/100. 11. She denies recreational drug use, tobacco, or alcohol use. [address] [address] PAIN MANAGEMENT CONSULTATION Name: SURENDRA DILLON Room #: REG Y[facility]KO Reina#: [id number] Admission: 09/01/18 ������������������ Attend Phys: Morris Ponce MD Discharge: ������������������ Date of : 49 Report #: [id number] PHYSICAL EXAMINATION: VITAL SIGNS: As noted above. PSYCHIATRIC: Her affect is anxious and depressed. Examination of the spine reveals tenderness at the top of her scar extending along the dermatomal distribution following roughly T10, does not extend into the anterior chest, but does extend along the thoracic wall. Sensation is intact over the area of pain with no loss to pinprick sensation. Her gait is stable. No antalgic features. IMPRESSION: 1. Chronic intractable low back pain, post-laminectomy syndrome. Thoracic radiculopathy. 2. Osteoarthritis involving shoulders and hips. 3. Management of high risk medications under terms of an opioid agreement. PLAN: 1. Return to the pain clinic for epidural. 2. Modalities as needed are to be provided by physical therapy. 3. MRI of thoracic spine. 4. Follow up for epidural injection in 1-2 weeks. ��������������������������������������������� ���������������������������������������� By: ��������������������������������������������� [id number] Morris Ponce MD /nt
[2018-09-01 09:47] VITALS: BP 133/74
--- NOTE | 2018-09-01 10:22 | NUR ---
Pain Clinic Assessment: 1. History of Osteoarthritis: Left Lower Extremity Left Upper Extremity History of Rheumatoid Arthritis: Not Applicable 2. Height: 5 ft. 2 in. 157.5 cm. Weight: 152.8 lb. oz. 69.310 kg. Patient's BMI: 27.9 3. Vital Signs: BP: 133/74 Pulse: 87 Resp: 16 Temp: 02 Sat: 98 ECG Mon: 4. Pain Intensity: 6-7 5. Fall Risk: Dizziness: N Needs help standing or walking: N Fallen in the last 3 months: N Fall risk comments: 6. Patient on Blood Thinner: None 7. History of Hypertension: N 8. Opioid Therapy greater than 6 weeks: Y Opiate Contract Signed: 03/24/16 9. Risk Assessment Tool Provided: low risk 10. Functional Assessment Tool: 11. Recreational Drug Use: Never Drug Type: Tobacco Use: Never Smoker Tobacco Type: Amount or Packs/day: How Many Years: Alcohol Use: No Frequency: Quant:
== END ==
LOC: PAIN 06:52
DX: G89.4 Chronic pain syndrome (principal); M96.1 Postlaminectomy syndrome, not elsewhere classified; M54.14 Radiculopathy, thoracic region; M16.0 Bilateral primary osteoarthritis of hip; M19.012 Primary osteoarthritis, left shoulder; M19.011 Primary osteoarthritis, right shoulder; Z79.891 Long term (current) use of opiate analgesic; Z79.899 Other long term (current) drug therapy

== ENCOUNTER → 2018-09-12 | Outpatient (CLI) | payer OTHER, BC ==
[~2018-09-12] VITALS: Ht 157.5 cm; Wt 71.5 kg
--- NOTE | ~2018-09-12 | HPC ---
[facility] [place] [address] [place] [address] PAIN MANAGEMENT CONSULTATION Name: SURENDRA DILLON [id number] Admission: 09/12/18 Attend Phys: Morris Ponce MD Discharge: Date of : 49 Report #: [id number] THIS REPORT FOR: //name// CC: KEON Ponce DATE OF SERVICE: 09/12/2018 Followup visit for thoracic radiculopathy. The patient was seen just one week ago and is here today for thoracic epidural. We discussed the procedure once again. Potential risks and benefits. I am going to inject her in the mid lower thoracic region advancing needle into the epidural space at that level and we will try and cover the dermatomes of roughly T9, T10 and T11 with an epidural steroid injection. Her daughter is with her today. We discussed the procedure. If pain persists, we will look for other options going forward. PHYSICAL EXAMINATION: GENERAL: She is a pleasant female, alert and oriented. VITAL SIGNS: Blood pressure is 135/88, heart rate is 75. There is mild tenderness over the area above her scar. Pain radiates in a dermatomal distribution following the lower thoracic dermatomes. IMPRESSION: Thoracic radiculopathy. PROCEDURE: Thoracic epidural steroid injection under fluoroscopic guidance. PROCEDURE: She was taken to fluoroscopic suite for the injection, placed prone, skin prepped with ChloraPrep. Skin anesthetized over the T11 interspace. A 20-gauge Tuohy epidural needle advanced into the epidural space with 2 levels above at T9. Good loss of resistance was obtained. An excellent epidurogram was achieved with 0.25 mL of Omnipaque. It was then followed by 3 mL of 0.5% bupivacaine mixed with 80 mg of triamcinolone. She tolerated the procedure well and was observed in recovery room for 45 minutes. There were no complications. Followup visit is planned in 1 month. I prescribed medication for her as well and I renewed her medications under terms of written opioid agreement. She is on OxyContin and oxycodone with an MME of 90. She is grateful for the pain relief she receives from medication and denies any significant side effects. Without medication, she does not feel that she would be able to be engaged in many of her activities of daily living and her daughter agrees. She understands the importance of safeguarding her medications under [address] [address] PAIN MANAGEMENT CONSULTATION Name: SURENDRA DILLON Room #: REG [facility]#: [id number] Admission: 09/12/18 Attend Phys: Morris Ponce MD Discharge: Date of : 49 Report #: [id number] terms of our agreement and I have checked her medications under the prescription drug monitoring program. There are no unexpected entries. Medications were therefore provided for her chronic pain and plan to see her back for medication in 3 months. I will see her back for further injections in 1-2 months. By: [id number] Morris Ponce MD /mike
[2018-09-12 14:35] VITALS: BP 122/69
--- NOTE | 2018-09-12 14:57 | NUR ---
Pain Clinic Assessment: 1. History of Osteoarthritis: Left Lower Extremity Left Upper Extremity History of Rheumatoid Arthritis: Not Applicable 2. Height: 5 ft. 2 in. 157.5 cm. Weight: 157.6 lb. oz. 71.487 kg. Patient's BMI: 28.8 3. Vital Signs: BP: 122/69 Pulse: 76 Resp: 16 Temp: 02 Sat: 100 ECG Mon: 4. Pain Intensity: 6 5. Fall Risk: Dizziness: N Needs help standing or walking: N Fallen in the last 3 months: N Fall risk comments: 6. Patient on Blood Thinner: None 7. History of Hypertension: N 8. Opioid Therapy greater than 6 weeks: Y Opiate Contract Signed: 03/24/16 9. Risk Assessment Tool Provided: low risk 10. Functional Assessment Tool: 11. Recreational Drug Use: Never Drug Type: Tobacco Use: Never Smoker Tobacco Type: Amount or Packs/day: How Many Years: Alcohol Use: No Frequency: Quant:
== END | disposition home or self-care (01) ==
LOC: PAIN 06:58
DX: M54.14 Radiculopathy, thoracic region (principal); G89.29 Other chronic pain; Z79.899 Other long term (current) drug therapy; Z79.891 Long term (current) use of opiate analgesic

== ENCOUNTER → 2018-10-17 | Outpatient (CLI) | payer OTHER, BC ==
[~2018-10-17] VITALS: Ht 157.5 cm; Wt 68.0 kg
[~2018-10-17] MED LIST changes: +METHADONE HCL5 MG PO
[2018-10-17 11:18] VITALS: BP 108/74
--- NOTE | 2018-10-17 11:19 | NUR ---
Pain Clinic Assessment: 1. History of Osteoarthritis: Left Lower Extremity Left Upper Extremity History of Rheumatoid Arthritis: Not Applicable 2. Height: 5 ft. 2 in. 157.5 cm. Weight: 150.0 lb. oz. 68.040 kg. Patient's BMI: 27.4 3. Vital Signs: BP: 108/74 Pulse: 95 Resp: 14 Temp: 02 Sat: 97 ECG Mon: 4. Pain Intensity: 6 5. Fall Risk: Dizziness: N Needs help standing or walking: N Fallen in the last 3 months: N Fall risk comments: 6. Patient on Blood Thinner: None 7. History of Hypertension: N 8. Opioid Therapy greater than 6 weeks: Y Opiate Contract Signed: 03/24/16 9. Risk Assessment Tool Provided: low risk-1 10. Functional Assessment Tool: 11. Recreational Drug Use: Never Drug Type: Tobacco Use: Never Smoker Tobacco Type: Amount or Packs/day: How Many Years: Alcohol Use: No Frequency: Quant:
--- NOTE | 2018-10-20 17:40 | HPC ---
[facility] [address] [place] [address] PAIN MANAGEMENT CONSULTATION Name: SURENDRA DILLON Room #: REG [facility].#: [id number] Admission: 10/17/18 ������������������ Attend Phys: Morris Ponce MD Discharge: ������������������ Date of : 49 Report #: [id number] THIS REPORT FOR: //name// CC: KEON Ponce DATE OF SERVICE: 10/17/2018 The patient returns to pain clinic today in tears. She received a thoracic epidural, which provided 4 days of pain relief, but the pain is now back to baseline perhaps even a little bit worse. What ensued was roughly 50 minutes consultation discussing further options for treatment of her post-laminectomy and fusion pain. She says the pain is really unbearable and worsening is not responding well to opioid medications. She has been on oxycodone for quite some time. No longer responds. Pain is constant and across her thoracic spine. It does not radiate at this time in any degree. She scores at best at 6/10. PQRS REVIEW: 1. Positive for osteoarthritis of left shoulder and left hip. 2. BMI 28.8. 3. Vital signs: Blood pressure 122/69, heart rate 76, respirations 16. 4. Pain intensity 6/10. 5. She is not a fall risk. 6. She is on no blood thinning medications. 7. No history of hypertension. 8. She is on an opioid agreement signed in 2017. 9. She is considered at low risk by the ORT for addiction (it should be noted that her daughter is a recovering methamphetamine addict and so she does have family history, but in a child, not in the patient or parent). 10. Functional assessment score is 50/70. 11. She denies use of tobacco and alcohol. PHYSICAL EXAMINATION: She is depressed female, cries throughout the visit today. She moves independently from sitting to standing position, ambulates with mild antalgic features. HEENT: PERRLA, EOM intact Neck: Supple, no masses or adenopathy Respiratory: Clear to Auscultation Cardiac: Regular rate and rhythym Musculoskelatal: She has pain across her mid back, particularly right at the bra line above her scar from her previous fusion. There is no [facility] [address] [place] [address] PAIN MANAGEMENT CONSULTATION Name: SURENDRA DILLON Room #: REG [facility].#: [id number] Admission: 10/17/18 ������������������ Attend Phys: Morris Ponce MD Discharge: ������������������ Date of : 49 Report #: [id number] radiation. Currently no evidence of radiculopathy. There is only a exacerbation of pain with back extension or flexion. IMPRESSION: Chronic thoracic pain. She has had some response to what was a radicular at the last visit, but the mid back pain has not resolved. This dramatically limits her activities and the pain is now resulting in a severe depression. RECOMMENDATIONS: We reviewed medications. She is currently taking oxycodone in the form of long-acting OxyContin t.i.d. and oxycodone 10 mg breakthrough 3-4 times daily. She still has medication. She also has bupropion for depression and zolpidem for sleep, pantoprazole, lactobacillus and levothyroxine. I have suggested a transition to methadone. We will start at 2.5 mg t.i.d. and gradually increase to 15 mg going off of the OxyContin. She can continue oxycodone for breakthrough. I discussed spinal cord stimulation, but I do not think she is a good candidate. An intrathecal pump may be her best option. I have referred her to Dr. Aroldo Valencia. I spent over 20 minute of the visit discussing this therapy with her and daughter. I was hopeful and optimistic. I have considered thoracic radiofrequency ablation, I am not certain that the pain is spondylitic and the levels are uncertain if it is. Thoracic RFL is more challenging and she may wish to pursue Cooled RFL (Thoracool) if she decides to try this route. I would refer her to a center of excellence that performs this if she chooses this route. I don't do a lot of thoracic RFL and I don't do cooled radiofrequency at all. I want to follow up with her in 1 week. We will consider also rotating her antidepressant. Cymbalta may be a better choice and Wellbutrin. TCA or SNRI more effective for pain. Multiple questions were asked and answered by the patient and her daughter. 50-60 minutes were spent in consultation. ��������������������������������������������� <ELECTRONICALLY SIGNED> ���������������������������������������� By: Morris Ponce MD ��������������������������������������������� 10/20/18 1740 [id number] Morris Ponce MD /nt
== END ==
LOC: PAIN 06:47
DX: M54.6 Pain in thoracic spine (principal); M96.1 Postlaminectomy syndrome, not elsewhere classified

== ENCOUNTER → 2018-10-27 | Outpatient (CLI) | payer OTHER, BC ==
[~2018-10-27] VITALS: Ht 157.5 cm; Wt 67.6 kg
--- NOTE | ~2018-10-27 | HPC ---
Formerly [facility] [place] [address] PAIN MANAGEMENT CONSULTATION Name: SURENDRA DILLON Room #: REG Vanessa Walker.#: [id number] Admission: 10/27/18 ������������������ Attend Phys: Morris Ponce MD Discharge: ������������������ Date of : 49 Report #: [id number] THIS REPORT FOR: //name// CC: KEON Ponce DATE OF SERVICE: 10/27/2018 The patient returns to pain clinic today in much better spirits. She has slowly increased her methadone dose and is now at 2.5 mg 3 times daily for a total of 7.5 mg. She had some early nausea, but that has now subsided. Today, she says she feels quite good. We have talked again about our attempt to manage her medication orally before moving on to an intrathecal pump. PQRS: 1. Diffuse osteoarthritis, lower and upper extremities. 2. BMI 27.2. 3. Vital signs: Blood pressure 127/84, heart rate 85. 4. Pain intensity down to a 5/10. 5. No falls. 6. No blood thinners. 7. No hypertension. 8. Opioid agreement signed in 2017. 9. Low risk for addiction. 10. Functional assessment score 54/70. This is a slight improvement from previous visit. 11. She denies use of tobacco or alcohol. PLAN: I have written for next month of methadone now 5 mg 3 times daily and plan to see her back in the pain clinic in 1 month. She will call the clinic or call me directly if there are problems. She will not increase her dose by more than 2.5 mg every 3 days and can increase from 7.5 to 15 mg by my instructions. If this continues to work well, we will keep her away from the need to implant an intrathecal pump and she plans to cancel appointment with Dr. Valencia. ��������������������������������������������� ���������������������������������������� By: ��������������������������������������������� [id number] Morris Ponce MD /nt
[2018-10-27 11:00] VITALS: BP 127/84
--- NOTE | 2018-10-27 11:08 | NUR ---
Pain Clinic Assessment: 1. History of Osteoarthritis: Left Lower Extremity Left Upper Extremity History of Rheumatoid Arthritis: Not Applicable 2. Height: 5 ft. 2 in. 157.5 cm. Weight: 149.0 lb. oz. 67.586 kg. Patient's BMI: 27.2 3. Vital Signs: BP: 127/84 Pulse: 85 Resp: 14 Temp: 02 Sat: 97 ECG Mon: 4. Pain Intensity: 5-6 5. Fall Risk: Dizziness: N Needs help standing or walking: N Fallen in the last 3 months: N Fall risk comments: 6. Patient on Blood Thinner: None 7. History of Hypertension: N 8. Opioid Therapy greater than 6 weeks: Y Opiate Contract Signed: 03/24/16 9. Risk Assessment Tool Provided: low risk-1 10. Functional Assessment Tool: 11. Recreational Drug Use: Never Drug Type: Tobacco Use: Never Smoker Tobacco Type: Amount or Packs/day: How Many Years: Alcohol Use: No Frequency: Quant:
== END ==
LOC: PAIN 06:49
DX: Z09 Encounter for follow-up examination after completed treatment for conditions other than malignant neoplasm (principal); M19.90 Unspecified osteoarthritis, unspecified site; F11.20 Opioid dependence, uncomplicated

== ENCOUNTER → 2018-11-28 | Outpatient (CLI) | payer OTHER, BC ==
[~2018-11-28] VITALS: Ht 157.5 cm; Wt 69.3 kg
[2018-11-28 11:01] VITALS: BP 122/68
--- NOTE | 2018-11-28 11:12 | NUR ---
Pain Clinic Assessment: 1. History of Osteoarthritis: Left Lower Extremity Left Upper Extremity History of Rheumatoid Arthritis: Not Applicable 2. Height: 5 ft. 2 in. 157.5 cm. Weight: 152.8 lb. oz. 69.310 kg. Patient's BMI: 27.9 3. Vital Signs: BP: 122/68 Pulse: 82 Resp: 16 Temp: 02 Sat: 97 ECG Mon: 4. Pain Intensity: 5-6 5. Fall Risk: Dizziness: N Needs help standing or walking: N Fallen in the last 3 months: N Fall risk comments: 6. Patient on Blood Thinner: None 7. History of Hypertension: N 8. Opioid Therapy greater than 6 weeks: Y Opiate Contract Signed: 03/24/16 9. Risk Assessment Tool Provided: low risk-1 10. Functional Assessment Tool: 11. Recreational Drug Use: Never Drug Type: Tobacco Use: Never Smoker Tobacco Type: Amount or Packs/day: How Many Years: Alcohol Use: No Frequency: Quant:
--- NOTE | 2018-11-29 13:51 | HPC ---
[facility] [address] [address] PAIN MANAGEMENT CONSULTATION Name: SURENDRA DILLON Room #: REG [facility] Nuno#: [id number] Admission: 11/28/18 Attend Phys: Kyra Reyes Discharge: Date of : 49 Report #: [id number] THIS REPORT FOR: //name// CC: Krya Reyes [facility] DATE OF SERVICE: 11/28/2018 CHIEF COMPLAINT: Thoracic radiculopathy. HISTORY OF PRESENT ILLNESS: This is a 73-year-old female who returns to the pain clinic today for refill and discussion on her current medications. She is quite tearful today during parts of our conversation. She recently started methadone in October. She feels that that medicine is working well for her. She is having less problems with constipation. She feels like since she started this medication she does continue her OxyIR half to one tablet 3 times a day as well. She does however rate her pain score of 5-6, which is the same level that she rated her pain when she was taking OxyContin. Again, she feels like she is somewhat better, but she is still quite depressed, crying through part of our visit today. She feels that the Wellbutrin that she receives from Dr. Alex Mann is not beneficial. She feels like that is making her worse. She has not been able to obtain an appointment with him to discuss weaning off this medication. The patient would like refills of her medication today, but she also would like to talk more about intrathecal pump that Dr. Ponce had discussed with her previous visits. ALLERGIES: No known drug allergies. CURRENT LIST OF MEDICATIONS: Excedrin caplet p.r.n., methadone 5 mg 3 times a day, Drisdol daily, Wellbutrin 300 mg daily, valacyclovir as needed, Ambien 12.5 mg at bedtime, Protonix 20 mg daily, probiotic daily and Synthroid 112 mcg daily. PQRS: 1. She has diffuse osteoarthritis in her upper and lower extremities. Denies any rheumatoid arthritis. 2. Height is 5 feet 2 inches, weight is 152, BMI is 27. 3. Vital signs 122/68, pulse is 82, respirations 16, oxygen sat is 97. 4. Pain score is 5-6. 5. Denies dizziness, does not need help walking or standing, has not fallen in the last 3 months. 6. The patient is not on any blood thinners and does not take medicine for hypertension. 7. Opiate therapy is greater than 6 weeks; therefore, [place] [address] PAIN MANAGEMENT CONSULTATION Name: SURENDRA DILLON Room #: REG YUMIKO Reina#: [id number] Admission: 11/28/18 Attend Phys: Kyra Reyes Discharge: Date of : 49 Report #: [id number] is on the chart. Risk assessment tool is low. Functional assessment 54/70. 8. Recreational drug use, she denies. She is a smoker and does not drink alcohol. According to the prescription monitoring system, the patient is due for her methadone fill today. There is a recent drug screen on the chart as well. PHYSICAL EXAMINATION: GENERAL: This is a depressed female, crying throughout the visit today. She appears her stated age, placing her current pain score at 5-6. HEENT: Normocephalic, atraumatic. Extraocular eye muscles are intact. MUSCULOSKELETAL: She moves independently from sitting to standing position, walks with a mild antalgic gait. She has pain across her mid thoracic area, right at the bra line. No radiation. Pain is increased with flexion and extension. IMPRESSION: 1. Chronic thoracic pain. 2. Depression. 3. Osteoarthritis involving her hips and shoulders. 4. Post-laminectomy syndrome. 5. High risk medications under terms of written opioid agreement We reviewed the fact that opiate medications are being used to provide analgesia adequate to support activities of daily living, not attempting to achieve a specific pain score on the 0-10 Visual Analog Scale. The current opiate medications are providing sufficient analgesia to allow the patient to participate in activities of daily living. The patient is not exhibiting any aberrant behavior suggestive of drug diversion. The patient is not having any adverse reactions to medications. The patient is not suffering from daytime somnolence or mental acuity changes. The patient is managing opiate-induced constipation with appropriate fwmp-dij-pnzkkmx agents and dietary considerations. The patient was counseled on concern for caution with operating a motor vehicle while using opiate medications. A physical exam was performed and the patient's functional status was evaluated. All patients with back pain were advised against the bed rest greater than 4 days and were advised to return to normal activities. Pain score assessment was noted and the treatment plan was reviewed with the patient. All current medications, both prescribed and OTC were reviewed and reconciled on the electronic medical record. Tobacco screening was accomplished and smoking cessation was advised when indicated. BMI was noted and diet/exercise modification was recommended for all patients following outside normal parameters. I reviewed with the patient today their responsibilities to [address] [address] PAIN MANAGEMENT CONSULTATION Name: SURENDRA DILLON Room #: REG YUMIKO Reina#: [id number] Admission: 11/28/18 Attend Phys: Kyra Reyes Discharge: Date of : 49 Report #: [id number] prescription medications, reviewed their responsibility to utilize medications only as prescribed by the physician. They are to seek and receive pain medications only from 1 physician group ( [facility]). They are to use 1 pharmacy and keep the clinic informed if they change pharmacies. Their responsibilities include making followup visits in a timely fashion and to avoid abrupt discontinuation of medication usage. Their responsibilities further include bringing their medications (bottles from the pharmacy with residual pills) to the visit for possible confirmation of pill counts and the patient understands it is their responsibility to submit to random drug screens to ensure both that the medications prescribed are present, and that no other controlled substances are present. All prescriptions provided today were generated electronically. PLAN: 1. We discussed treatment options with the patient today. The patient at one point requested to take methadone 4 times a day to see if that was more beneficial in controlling her pain. I explained to her the long half-life of methadone and the need to stay at lowest most effective dose and was decided to keep her methadone at 5 mg 3 times a day. Scripts given today for #90. 2. The patient may continue her OxyIR 10 mg that she has at home. She is not needing a script today. She believes she has enough medicines to last for one month. She takes this very sparingly, half to one tablet up to 3 times a day. 3. The patient is very depressed, crying throughout the visit today. She has not been able to obtain an appointment with her psychologist where she would like to wean off her Wellbutrin. After much discussion that Dr. Ponce was present today, we have elected to write her a short prescription for Wellbutrin 150 mg tablets. The patient is instructed to stop her 300 and start 150 a day for 5 days, then to take it every other day, then every third day until off. She should be off this antidepressant within 2 weeks. The patient then would like to see how she does without any antidepressants before possibly starting another one. 4. We did discuss briefly Remeron starting at 7.5 mg at bedtime and increasing upward if need be for next antidepressant if she needs this in the future. I believe this will also help with her sleep since she is not sleeping at bedtime. 5. We did discuss intrathecal pump more in depth today, but at this time, the patient would like to hold off on that modality. 6. The patient is seen in collaboration with Dr. Morris Ponce who did see the patient as well today. The patient will follow up in 1 month to evaluate medication changes. <ELECTRONICALLY SIGNED> By: Kyra Reyes 11/29/18 1351 [id number] Kyra Reyes /mike
== END ==
LOC: PAIN 06:47
DX: G89.4 Chronic pain syndrome (principal); F32.9 Major depressive disorder, single episode, unspecified; M96.1 Postlaminectomy syndrome, not elsewhere classified; M19.012 Primary osteoarthritis, left shoulder; M19.011 Primary osteoarthritis, right shoulder; M16.0 Bilateral primary osteoarthritis of hip; Z79.899 Other long term (current) drug therapy; Z79.891 Long term (current) use of opiate analgesic

== ENCOUNTER → 2019-01-02 | Outpatient (CLI) | payer OTHER, BC ==
[~2019-01-02] VITALS: Ht 157.5 cm; Wt 68.6 kg
[~2019-01-02] MED LIST changes: +DOLOPHINE HCL5 MG PO
[2019-01-02 09:57] VITALS: BP 100/80
--- NOTE | 2019-01-02 10:11 | NUR ---
Pain Clinic Assessment: 1. History of Osteoarthritis: Left Lower Extremity Left Upper Extremity History of Rheumatoid Arthritis: Not Applicable 2. Height: 5 ft. 2 in. 157.5 cm. Weight: 151.2 lb. oz. 68.584 kg. Patient's BMI: 27.6 3. Vital Signs: BP: 100/80 Pulse: 81 Resp: 14 Temp: 02 Sat: 100 ECG Mon: 4. Pain Intensity: 3-4 5. Fall Risk: Dizziness: N Needs help standing or walking: N Fallen in the last 3 months: N Fall risk comments: 6. Patient on Blood Thinner: None 7. History of Hypertension: N 8. Opioid Therapy greater than 6 weeks: Y Opiate Contract Signed: 03/24/16 9. Risk Assessment Tool Provided: low risk-1 10. Functional Assessment Tool: 11. Recreational Drug Use: Never Drug Type: Tobacco Use: Never Smoker Tobacco Type: Amount or Packs/day: How Many Years: Alcohol Use: No Frequency: Quant:
--- NOTE | 2019-01-03 09:25 | HPC ---
[facility] [address] [place] [address] PAIN MANAGEMENT CONSULTATION Name: SURENDRA DILLON [id number] Admission: 01/02/19 Attend Phys: Kyra Reyes Discharge: Date of : 49 Report #: [id number] THIS REPORT FOR: //name// CC: Kyra Reyes [facility] DATE OF SERVICE: 01/02/2019 CHIEF COMPLAINT: Thoracic radiculopathy. HISTORY OF PRESENT ILLNESS: This is a very pleasant 73-year-old female who returned to the pain clinic today to report that the methadone therapy is working very well. She is pleasantly surprised. She started with having nausea issues as a result of the methadone, but those have gone away and she finds that is very beneficial in controlling her pain, taking 5 mg of methadone 3 times a day as well as an occasional OxyIR 10 mg twice a day. She is reporting a pain score of 3/4. She reports she feels like she has her "life back." Her pain, when she experiences, is a sharp, aching feeling, worse when she is active. She feels that lying down as well as medicating herself is very helpful. She also denies daytime somnolence, and she feels that her constipation is less with the methadone therapy. She would like to have refills of this new medication again today. ALLERGIES: No known drug allergies. CURRENT LIST OF MEDICATIONS: Methadone 5 mg 3 times a day, Excedrin capsules t.i.d., Drisdol weekly, valacyclovir as needed, Ambien 12.5 mg p.r.n., Protonix 20 mg daily, probiotic daily, Synthroid 112 mcg daily and OxyIR 10 mg 2 times a day. PQRS: 1. She has a history of osteoarthritis in her left upper and lower extremities. Denies any rheumatoid arthritis. 2. Height is 5 feet 2 inches, weight is 151. BMI is 27. 3. Vital signs 100/80, pulse is 81, respirations 14, oxygen sat is 100. 4. Pain score is 3-4. 5. Denies dizziness, does not need help walking or standing, has not fallen in the last 3 months. 6. The patient is not on any blood thinners and does not have hypertension. 7. Opiate therapy is greater than 6 weeks; therefore, an opioid signed contract is on the chart. Risk assessment tool is low. Functional assessment is 54/70. 8. Recreational drug use, she denies. She is not a smoker and does not drink alcohol. According to the prescription monitoring system, the patient is filling appropriately for her medications in a timely fashion. She is due for those [address] [address] PAIN MANAGEMENT CONSULTATION Name: KINJAMSURENDRA ZACH Room #: REG YUMIKO Reina#: [id number] Admission: 01/02/19 Attend Phys: Kyra Reyes Discharge: Date of : 49 Report #: [id number] medicines today. There is also a recent drug screen on the chart that was appropriate for her older medicines as well. PHYSICAL EXAMINATION: GENERAL: This is an alert and orientated 73-year-old female who is very upbeat today, placing her pain score at 3/4 today. HEENT: Normocephalic, atraumatic. Extraocular eye muscles are intact. Mucous membranes are moist. MUSCULOSKELETAL: She moves independently from the sitting to standing position, walks with a very mild antalgic gait. Her gait is noticeably improved over the last few months. She has tenderness in her mid thoracic area that radiates outward into her bra line, greater on the left than the right. It is tender to the touch. Her pain is also increased with flexion and extension. IMPRESSION: 1. Chronic thoracic pain. 2. Osteoarthritis involving her hips and shoulders. 3. Post-laminectomy syndrome. 4. Depression. 5. High-risk medications under terms of written opioid agreement. We reviewed the fact that opiate medications are being used to provide analgesia adequate to support activities of daily living, not attempting to achieve a specific pain score on the 0-10 Visual Analog Scale. The current opiate medications are providing sufficient analgesia to allow the patient to participate in activities of daily living. The patient is not exhibiting any aberrant behavior suggestive of drug diversion. The patient is not having any adverse reactions to medications. The patient is not suffering from daytime somnolence or mental acuity changes. The patient is managing opiate-induced constipation with appropriate boty-axj-epabvus agents and dietary considerations. The patient was counseled on concern for caution with operating a motor vehicle while using opiate medications. PLAN: 1. We discussed treatment options with the patient today. The patient finds the methadone very beneficial in controlling her pain, taking 5 mg 3 times a day, occasionally she is even able to split and take 2.5 mg. The patient finds this medicine very beneficial as well as taking OxyIR 10 mg half a tablet 3-4 times a day. We will refill these medications for another month just making sure that she is doing well on them, and then, we will return her to bimonthly visits. The patient is agreeable with this plan of care. We will send them electronically, methadone 5 mg #90 and OxyIR 10 #60. 2. The patient has been able to wean off her Wellbutrin. We had decreased her dose in half last visit. She continues to be off this medicine, feeling quite upbeat. She feels that she was having adverse effects of that medicine and is glad to be off of that. [facility] [address] [place] [address] PAIN MANAGEMENT CONSULTATION Name: SURENDRA DILLON Room #: REG [facility] Shonna.#: [id number] Admission: 01/02/19 Attend Phys: Kyra Reyes Discharge: Date of : 49 Report #: [id number] 3. The patient will be seen in 1 month. She will need vacation fills prior to going to [place] for her January visit and will return in time for her February fill. The patient is seen in collaboration with Dr. Morris Ponce today. <ELECTRONICALLY SIGNED> By: Kyra Reyes 01/03/19 0925 [id number] Kyra Reyes /mike
== END ==
LOC: PAIN 06:43
DX: M54.6 Pain in thoracic spine (principal); M19.011 Primary osteoarthritis, right shoulder; M19.012 Primary osteoarthritis, left shoulder; F32.9 Major depressive disorder, single episode, unspecified

== ENCOUNTER → 2019-01-26 | Outpatient (CLI) | payer OTHER, BC ==
[~2019-01-26] VITALS: Ht 157.5 cm; Wt 70.7 kg
[2019-01-26 10:53] VITALS: BP 135/75
--- NOTE | 2019-01-26 11:07 | NUR ---
Pain Clinic Assessment: 1. History of Osteoarthritis: Left Lower Extremity Left Upper Extremity History of Rheumatoid Arthritis: Not Applicable 2. Height: 5 ft. 2 in. 157.5 cm. Weight: 155.8 lb. oz. 70.670 kg. Patient's BMI: 28.5 3. Vital Signs: BP: 135/75 Pulse: 79 Resp: 16 Temp: 02 Sat: 98 ECG Mon: 4. Pain Intensity: 6 5. Fall Risk: Dizziness: N Needs help standing or walking: N Fallen in the last 3 months: N Fall risk comments: 6. Patient on Blood Thinner: None 7. History of Hypertension: N 8. Opioid Therapy greater than 6 weeks: Y Opiate Contract Signed: 03/24/16 9. Risk Assessment Tool Provided: low risk-1 10. Functional Assessment Tool: 11. Recreational Drug Use: Never Drug Type: Tobacco Use: Never Smoker Tobacco Type: Amount or Packs/day: How Many Years: Alcohol Use: No Frequency: Quant:
--- NOTE | 2019-01-26 13:50 | HPC ---
[facility] [address] [address] PAIN MANAGEMENT CONSULTATION Name: SURENDRA DILLON Room #: REG [facility] MWalker.#: [id number] Admission: 01/26/19 Attend Phys: Kyra Reyes Discharge: Date of : 49 Report #: [id number] THIS REPORT FOR: //name// CC: Kyra Ponce MD DATE OF SERVICE: 01/26/2019 CHIEF COMPLAINT: Thoracic radiculopathy. HISTORY OF PRESENT ILLNESS: This is a 73-year-old female who returns to the pain clinic today for refill of her medications. At times throughout our visit, she is tearful, stating that the methadone, which she thought was a "wonder medicine" is not working as well as it had in the last month. She is tearful because her pain has increased. She is not wanting any changes in her medication but she is somewhat disappointed. She feels that the OxyIR taking a half to one tablet twice a day is beneficial as well as her methadone. She thinks that she may just be in a period of increased pain. The patient is rating her pain score as 6/10 today, located in her thoracic back at her bra line. She does have occasional knee and shoulder pain as well. She feels that the medications do help, though not as much as she had initially thought they were and also lying down. The patient is getting ready to go to [place] and then [place] which she does every winter for several months that she has spoken with her insurance company and they have given her authorization for a 3-month supply of her medication for an override for this one time. So, she is requesting those scripts today in a 3-month supply. The patient does report less constipation with the methadone that she had experienced when she was on her OxyContin and feels that she does not have any daytime somnolence. ALLERGIES: No known drug allergies. CURRENT LIST OF MEDICATIONS: OxyIR 2 tablets a day, methadone 5 mg t.i.d., aspirin, vitamin D, Ambien 12.5 mg at bedtime p.r.n., Protonix, probiotic and Synthroid 112 mcg daily. PQRS: 1. She has a history of osteoarthritis in her upper and lower extremities. Denies any rheumatoid arthritis. 2. Height is 5 feet 2 inches, weight is 155, BMI is 28. 3. Vital signs 135/75, pulse is 79, respirations 16, oxygen sat is 98. [facility] [address] [place] [address] PAIN MANAGEMENT CONSULTATION Name: SURENDRA DILLON Room #: [facility].#: [id number] Admission: 01/26/19 Attend Phys: Kyra Reyes Discharge: Date of : 49 Report #: [id number] 4. Pain score 6/10. 5. Denies dizziness, does not need help walking or standing, has not fallen in the last 3 months. 6. The patient is not on any blood thinners or medicine for hypertension. 7. Opioid therapy is greater than 6 weeks; therefore, an opioid signed contract is on the chart. Risk assessment tool is low. Functional assessment is 54/70. 8. Recreational drug use, she denies. She is not a smoker. Does not drink alcohol. According to the prescription monitoring system, the patient is due to fill her medications in a few days. She is filling appropriately according to the CDC guidelines, her morphine mEq is 75 per day. Normally, we would give her 2-month supply of these medications. We will make an exception since she is traveling. The patient will keep her medications safe guarded at all times. PHYSICAL EXAMINATION: GENERAL: This is alert and orientated 73-year-old who is tearful throughout her visit today, rating her pain score at 6/10. HEENT: Normocephalic, atraumatic. Extraocular eye muscles are intact. Mucous membranes are moist. MUSCULOSKELETAL: She moves from sitting to standing without any difficulty, though does have a slightly antalgic gait. She has tenderness in her thoracic area that radiates along her bra line, greater on the left side than the right. The patient does have increased pain with flexion and extension of her thoracic, lumbar spine. IMPRESSION: 1. Chronic thoracic pain. 2. Osteoarthritis involving her hips and shoulders. 3. Post-laminectomy syndrome. 4. Depression. 5. High risk medications under terms of written opioid agreement. We reviewed the fact that opiate medications are being used to provide analgesia adequate to support activities of daily living, not attempting to achieve a specific pain score on the 0-10 Visual Analog Scale. The current opiate medications are providing sufficient analgesia to allow the patient to participate in activities of daily living. The patient is not exhibiting any aberrant behavior suggestive of drug diversion. The patient is not having any adverse reactions to medications. The patient is not suffering from daytime somnolence or mental acuity changes. The patient is managing opiate-induced constipation with appropriate [id number]-[id number] agents and dietary considerations. The patient was counseled on concern for caution with operating a motor vehicle while using opiate medications. PLAN: [address] [address] PAIN MANAGEMENT CONSULTATION Name: SURENDRA DILLON Room #: REG [facility] Reina#: [id number] Admission: 01/26/19 Attend Phys: Kyra Reyes Discharge: Date of : 49 Report #: [id number] 1. We discussed treatment options with the patient today. The patient has been tearful throughout the part of our visit today. We did briefly talk about antidepressant medicines again. She had worked hard getting off her Wellbutrin. She had tried numerous medicines in the past such as Cymbalta, Prozac and Paxil. She is not wanting to return to any of those medications presently, but understands if she does continue to feel tearful that she will contact her therapist again. 2. The patient is requesting a 3-month supply of her medications since she is going out of town. She understands that we normally do not write that many meds for her. We were going to write 2 months based on her morphine mEq. We will make an exception this one time. The patient instructed to keep these safeguarded at all times and with her when she travels. Dr. Morris Ponce will electronically sign her methadone 5 mg t.i.d., #270 and OxyIR 10 mg b.i.d., #180. 3. The patient requested for us to fill her Ambien this one time since she has not seen her primary care doctor. We will refill those with the understanding that this is the one time only, Ambien 12.5, 90 day's supply is set as well. 4. The patient will follow up in 3 months when she returns from her holiday. The patient is seen today and collaborated with Dr. Morris Ponce. <ELECTRONICALLY SIGNED> By: Kyra Reyes 01/26/19 1350 [id number] Kyra Reyes /nt
== END ==
LOC: PAIN 07:01
DX: M16.0 Bilateral primary osteoarthritis of hip (principal); M19.012 Primary osteoarthritis, left shoulder; M19.011 Primary osteoarthritis, right shoulder; F32.9 Major depressive disorder, single episode, unspecified; M96.1 Postlaminectomy syndrome, not elsewhere classified

== ENCOUNTER → 2019-04-17 | Outpatient (CLI) | payer OTHER, BC ==
[~2019-04-17] VITALS: Ht 157.5 cm; Wt 69.6 kg
[~2019-04-17] MED LIST changes: +REMERON15 M2 PO
--- NOTE | ~2019-04-17 | HPC ---
[facility] [place] [address] PAIN MANAGEMENT CONSULTATION Name: SURENDRA DILLON Room #: REG [facility] M..#: [id number] Admission: 04/17/19 Attend Phys: Morris Ponce MD Discharge: Date of : 49 Report #: [id number] THIS REPORT FOR: cc: Keon Mckoy MD,Morris Rodriguez MD, MD ~ CC: KEON Mann MD DATE OF SERVICE: 04/17/2019 CHIEF COMPLAINT: Chronic persistent intractable mid back pain, post-thoracic laminectomy. The patient returns to pain clinic today, was in the clinic for about 45 minutes along with her daughter for consultation. She is suffering from severe depression. Both the pain and the depression are severe. They are contributing to each other. We discussed the biopsychosocial nature of chronic pain for some time. She has been treated with antidepressants in the past, but is not responding to her current treatments and discontinued them. Her most recent antidepressant was Wellbutrin. She describes her pain as 6/10, sharp and aching. She has pain in her back along the bra line, also pain in her knees and shoulders secondary to arthritis. MEDICATIONS: Methadone 5 mg t.i.d., oxycodone 10 mg breakthrough pain, no more than 2 per day, Excedrin, ergocalciferol, valacyclovir, Protonix, probiotic and Synthroid. ALLERGIES: None. PQRS: Positive for osteoarthritis in the lower extremities. BMI of 28.1, blood pressure 118/69, heart rate 85, respirations 16, O2 sat 100, pain intensity 6/10. No falls in the last 3 months. She denies use of blood thinners and is not on antihypertensives. She is on an opioid agreement, first signed in 2017 and an opioid risk tool assessment is 1 suggesting low risk of addiction. Functional assessment score is extremely high suggesting grade impact on her day-to-day activities from pain, although this could also be related to depression. She does not smoke or use alcohol. PHYSICAL EXAMINATION: GENERAL: She cried throughout her visit today and admits to severe depression with anhedonia. She does not report suicidal ideation. VITAL SIGNS: As noted above. [facility] [address] [place] [address] PAIN MANAGEMENT CONSULTATION Name: SURENDRA DILLON Room #: REG [facility].#: [id number] Admission: 04/17/19 Attend Phys: Morris Ponce MD Discharge: Date of : 49 Report #: [id number] BACK: Examination of the back and spine reveals tenderness across the thoracic spine, pain with flexion, extension and rotation. Pain radiates around the thoracic region. IMPRESSION: 1. Chronic thoracic pain. 2. Severe osteoarthritis involving hips and shoulders. 3. 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 4. Management of high risk medications under terms of written opioid agreement. RECOMMENDATIONS: 1. Begin mirtazapine 7.5 mg at bedtime x 1 week, then increase to 15 mg at bedtime. 2. Continue on current opioid medications to avoid withdrawal and worsening depression. 3. See Dr. Aroldo Valencia to discuss possibility of intrathecal pump. By: [id number] Morris Ponce MD /nt
[2019-04-17 12:43] VITALS: BP 118/69
--- NOTE | 2019-04-17 13:00 | NUR ---
Pain Clinic Assessment: 1. History of Osteoarthritis: Left Lower Extremity Left Upper Extremity History of Rheumatoid Arthritis: Not Applicable 2. Height: 5 ft. 2 in. 157.5 cm. Weight: 153.4 lb. oz. 69.582 kg. Patient's BMI: 28.1 3. Vital Signs: BP: 118/69 Pulse: 85 Resp: 16 Temp: 02 Sat: 100 ECG Mon: 4. Pain Intensity: 6 5. Fall Risk: Dizziness: N Needs help standing or walking: N Fallen in the last 3 months: N Fall risk comments: 6. Patient on Blood Thinner: None 7. History of Hypertension: N 8. Opioid Therapy greater than 6 weeks: Y Opiate Contract Signed: 03/24/16 9. Risk Assessment Tool Provided: low risk-1 10. Functional Assessment Tool: 11. Recreational Drug Use: Never Drug Type: Tobacco Use: Never Smoker Tobacco Type: Amount or Packs/day: How Many Years: Alcohol Use: No Frequency: Quant:
== END ==
LOC: PAIN 06:40
DX: M16.0 Bilateral primary osteoarthritis of hip (principal); M96.1 Postlaminectomy syndrome, not elsewhere classified; M54.6 Pain in thoracic spine; M19.012 Primary osteoarthritis, left shoulder; M19.011 Primary osteoarthritis, right shoulder; F32.9 Major depressive disorder, single episode, unspecified; Z79.891 Long term (current) use of opiate analgesic

== ENCOUNTER → 2019-05-15 | Outpatient (CLI) | payer OTHER, BC ==
[~2019-05-15] VITALS: Ht 157.5 cm; Wt 71.7 kg
[~2019-05-15] MED LIST changes: +AMBIEN CR12.5 MG PO
--- NOTE | ~2019-05-15 | HPC ---
[facility] [place] [address] PAIN MANAGEMENT CONSULTATION Name: SURENDRA DILLON Room #: REG [facility] ..#: [id number] Admission: 05/15/19 Attend Phys: Morris Ponce MD Discharge: Date of : 49 Report #: [id number] THIS REPORT FOR: cc: Keon Mckoy MD,Keon Ponce,Morris Salinas MD ~ CC: KEON Ponce DATE OF SERVICE: 05/15/2019 SUBJECTIVE: Followup visit for thoracic radiculopathy, status post extensive laminectomy. The patient returns to Pain Clinic with her daughter for a 15-minute consultation. We discussed at her last visit the possibility of an intrathecal pump and she would like to go forward with that. Currently, she understands that all elective procedures are on hold because of the COVID-19 virus quarantine. Her pain, however, is intense. She scores it today as a 9/10 at its worst. Pain is across her back, radiates into the right chest wall and is above the level of her fusion. CURRENT MEDICINES: Reviewed in detail. She is on methadone 5 mg 3 times daily, OxyIR 10 mg 3 times daily, mirtazapine 15 mg at bedtime for depression and sleep. She is not on an anti-inflammatory drug and we discussed the addition of that. Protonix, probiotic, Synthroid, Excedrin, ergocalciferol. ALLERGIES: None. SOCIAL HISTORY: She has been isolating in her cabin/house at on [address] [facility], which is felt to be good. She is not within distance of any others and has adequate supplies set in. She would like very much an epidural injection today. She was nearly in tears. Both she and her daughter had hoped that she could get an injection for pain relief. We discussed the role of injections and she understands that there is some theoretical risk in providing corticosteroids at a time when we were worried about infection. I discussed at some length the risks and benefits of cortisone for pain relief versus possible immunosuppressive effects. Injections have been allowed, but physicians and patients should carefully weigh the risks and benefits. In so doing, I have agreed to provide the injection for her today with 40 mg of triamcinolone, half of her usual dose. [address] [address] PAIN MANAGEMENT CONSULTATION Name: SURENDRA DILLON Room #: REG [facility]..#: [id number] Admission: 05/15/19 Attend Phys: Morris Ponce MD Discharge: Date of : 49 Report #: [id number] PQRS REVIEW: Positive for osteoarthritis involving shoulders, hips bilaterally. BMI 28.9, blood pressure 127/76, heart rate 94, respirations 14, O2 sat 97. She is breathing easily. Pain intensity 6/10. She is not a fall risk. She is on no blood thinners and is not treated for hypertension and has signed an opioid agreement through our clinic. She is considered at low risk for addiction with opioid risk score of 1. Her functional assessment score 54/70. She denies use of tobacco at this time. IMPRESSION: Post-laminectomy syndrome with fusion and thoracic radiculopathy. PROCEDURE: Thoracic epidural injection under fluoroscopic guidance. DESCRIPTION OF PROCEDURE: She was taken to fluoroscopic suite, placed prone, skin prepped with ChloraPrep. Skin anesthetized over the T10-T11 interspace. A 20-gauge Tuohy epidural needle was advanced into the epidural space with loss of resistance technique. There was no blood or CSF aspirated. A 0.25 mL of Omnipaque demonstrated an excellent epidurogram to the right of midline, was then followed by 3 mL of 0.5% lidocaine mixed with 40 mg of triamcinolone. She tolerated the procedure well and was observed for a short time and discharged. There were no complications. Followup visit planned as needed. ADDENDUM: MEDICATION MANAGEMENT: Because of her longstanding need for stronger pain medication, I have renewed her methadone 5 mg t.i.d., and OxyIR 10 mg t.i.d. I have confirmed her use on the prescription drug monitoring program information and there are no unexpected entries or other providers. She is on temazepam or benzodiazepine. We discussed the interaction. She has been on it safely for some time. I made sure that she is taking the proper dose of mirtazapine. I have also added celecoxib 200 mg once a day. Hopefully, the anti-inflammatory will have a supplementary or an additional effect and provide her with more pain relief. She will call if there are any issues with the new medications. Reviewed all the terms of our agreement and she denies any side effects, is grateful for the relief that this medicine provide for her, allows her to be somewhat more functional. She feels strongly that she would be bedfast without it. By: [id number] Morris Ponce MD /nt
[2019-05-15 12:41] VITALS: BP 127/76
--- NOTE | 2019-05-15 12:45 | NUR ---
Pain Clinic Assessment: 1. History of Osteoarthritis: Left Lower Extremity Left Upper Extremity History of Rheumatoid Arthritis: Not Applicable 2. Height: 5 ft. 2 in. 157.5 cm. Weight: 158.0 lb. oz. 71.668 kg. Patient's BMI: 28.9 3. Vital Signs: BP: 127/76 Pulse: 94 Resp: 15 Temp: 02 Sat: 97 ECG Mon: 4. Pain Intensity: 6 5. Fall Risk: Dizziness: N Needs help standing or walking: N Fallen in the last 3 months: N Fall risk comments: 6. Patient on Blood Thinner: None 7. History of Hypertension: N 8. Opioid Therapy greater than 6 weeks: Y Opiate Contract Signed: 03/24/16 9. Risk Assessment Tool Provided: low risk-1 10. Functional Assessment Tool: 11. Recreational Drug Use: Never Drug Type: Tobacco Use: Never Smoker Tobacco Type: Amount or Packs/day: How Many Years: Alcohol Use: No Frequency: Quant:
== END | disposition home or self-care (01) ==
LOC: PAIN 06:41
DX: M54.14 Radiculopathy, thoracic region (principal); G89.29 Other chronic pain; M96.1 Postlaminectomy syndrome, not elsewhere classified; M19.90 Unspecified osteoarthritis, unspecified site; Z98.890 Other specified postprocedural states

== ENCOUNTER → 2019-06-19 | Outpatient (CLI) | payer OTHER, BC ==
[~2019-06-19] VITALS: Ht 157.5 cm; Wt 69.7 kg
[2019-06-19 13:20] VITALS: BP 125/85
--- NOTE | 2019-06-19 13:37 | NUR ---
Pain Clinic Assessment: 1. History of Osteoarthritis: Left Lower Extremity Left Upper Extremity Right Upper Extremity Right Lower Extremity History of Rheumatoid Arthritis: Not Applicable 2. Height: 5 ft. 2 in. 157.5 cm. Weight: 153.6 lb. oz. 69.672 kg. Patient's BMI: 28.1 3. Vital Signs: BP: 125/85 Pulse: 96 Resp: 16 Temp: 02 Sat: 98 ECG Mon: 4. Pain Intensity: 8 5. Fall Risk: Dizziness: N Needs help standing or walking: N Fallen in the last 3 months: N Fall risk comments: 6. Patient on Blood Thinner: None 7. History of Hypertension: N 8. Opioid Therapy greater than 6 weeks: Y Opiate Contract Signed: 03/24/16 9. Risk Assessment Tool Provided: low risk-1 10. Functional Assessment Tool: 54/ 11. Recreational Drug Use: Never Drug Type: Tobacco Use: Never Smoker Tobacco Type: Amount or Packs/day: How Many Years: Alcohol Use: No Frequency: Quant:
--- NOTE | 2019-06-20 18:18 | HPC ---
[facility] [place] [address] PAIN MANAGEMENT CONSULTATION Name: SURENDRA DILLON Room #: REG [facility].#: [id number] Admission: 06/19/19 Attend Phys: Morris Ponce MD Discharge: Date of : 49 Report #: [id number] THIS REPORT FOR: cc: Judie Mckoy MD,Judie Ponce,Morris Salinas MD ~ CC: Judie Ponce DATE OF SERVICE: 06/19/2019 Followup visit for thoracic radiculopathy, status post extensive laminectomy and fusion. The patient returns to pain clinic today and reported several weeks of very good pain relief following her thoracic epidural injection. She is here today to repeat the injection. We are hopeful that we can provide her more sustained and long lasting pain relief with a repeat injection. I will continue to inject 1-2 levels above her fusion. I saw her most recently in followup on 05/15/2019. There have been few changes to her overall condition since then other than that, there has been slight improvement in her pain. She reports that she continues to stay in her house in [facility]. She has been social distancing, wearing a mask any time that she is out. She has been very cautious. We discussed that there is some slight risk receiving cortisone injection due to diminished stress response that can occur and she is anxious to proceed, however. IMPRESSION: Post-laminectomy syndrome with fusion, thoracic radiculopathy. PROCEDURE: Thoracic epidural under fluoroscopic guidance. PROCEDURE: After informed consent, she was taken to fluoroscopic suite, placed prone, skin was prepped with ChloraPrep. Skin anesthetized over T10-T11 interspace. A 20-gauge Tuohy epidural needle advanced in the epidural space using loss of resistance technique. No blood or CSF was aspirated. A 0.25 mL of Omnipaque demonstrated once again an excellent epidurogram. Medication was bilateral. The majority spreading to the right of midline consistent with her pain. This was then followed with 3 mL of 0.5% lidocaine mixed with 60 mg of triamcinolone. She tolerated the procedure well and was observed for a short time and discharged. Pain score at discharge was 6 as it was prior to her last visit but we did not make changes. Medications were discussed on this visit. She has responded favorably to mirtazapine, which has helped with sleep and with pain. Oxycodone 10 mg continues to be reasonably good breakthrough pain medication she feels it [address] [address] PAIN MANAGEMENT CONSULTATION Name: SURENDRA DILLON Room #: REG [facility].#: [id number] Admission: 06/19/19 Attend Phys: Morris Ponce MD Discharge: Date of : 49 Report #: [id number] effective for that 4 hours or so after she takes it. We discussed extensively methadone versus OxyContin for a long lasting baseline pain medication. I have agreed to increase her dose from 15 mg a day to 20 mg a day. She will begin a day with 10 mg followed by 5 at noon and 5 in the evening. We talked about the pharmacokinetics drug and way that she could understand. I want to make sure that she is careful about taking medication as prescribed without varying the baseline dose. She will discontinue Celebrex. New prescription was written for methadone to be released, in about 20 days, she will use her current medicines to go to 20 mg. Followup visit planned in 2 to 3 months. <ELECTRONICALLY SIGNED> By: Morris Ponce MD 06/20/19 1818 1630 [id number] Morris Ponce MD /nt
== END | disposition home or self-care (01) ==
LOC: PAIN 06:57
DX: M54.14 Radiculopathy, thoracic region (principal); G89.29 Other chronic pain; M96.1 Postlaminectomy syndrome, not elsewhere classified; Z98.890 Other specified postprocedural states; Z79.899 Other long term (current) drug therapy

== ENCOUNTER → 2019-07-13 | Outpatient (CLI) | payer OTHER, BC ==
[~2019-07-13] VITALS: Ht 157.5 cm; Wt 79.6 kg
[2019-07-13 13:49] VITALS: BP 138/72
--- NOTE | 2019-07-13 14:12 | NUR ---
Pain Clinic Assessment: 1. History of Osteoarthritis: Left Lower Extremity Left Upper Extremity Right Upper Extremity Right Lower Extremity History of Rheumatoid Arthritis: Not Applicable 2. Height: 5 ft. 2 in. 157.5 cm. Weight: 175.4 lb. oz. 79.561 kg. Patient's BMI: 32.1 3. Vital Signs: BP: 138/72 Pulse: 91 Resp: 14 Temp: 02 Sat: 98 ECG Mon: 4. Pain Intensity: 6-7 5. Fall Risk: Dizziness: N Needs help standing or walking: N Fallen in the last 3 months: N Fall risk comments: 6. Patient on Blood Thinner: None 7. History of Hypertension: N 8. Opioid Therapy greater than 6 weeks: Y Opiate Contract Signed: 03/24/16 9. Risk Assessment Tool Provided: low risk-1 10. Functional Assessment Tool: 54/70 11. Recreational Drug Use: Never Drug Type: Tobacco Use: Never Smoker Tobacco Type: Amount or Packs/day: How Many Years: Alcohol Use: No Frequency: Quant:
--- NOTE | 2019-07-14 09:10 | HPC ---
[facility] [address] [place] [address] PAIN MANAGEMENT CONSULTATION Name: SURENDRA DILLON Room #: REG [facility]..#: [id number] Admission: 07/13/19 Attend Phys: Kyra Reyes Discharge: Date of : 49 Report #: [id number] THIS REPORT FOR: cc: Judie Mckoy MD, Janice K. MD Hocker, Amanda CNS ~ CC: Morris Ponce MD DATE OF SERVICE: 07/13/2019 CHIEF COMPLAINT: Thoracic radiculopathy status post extensive laminectomy. HISTORY OF PRESENT ILLNESS: This is a slightly anxious 73-year-old female who returns to the pain clinic today for refill of her opioid medications and to discuss the effectiveness of her methadone treatment. She is rating her pain score of 6-7 today stating that her pain is in her mid back at her bra line. She is also experiencing bilateral knee pain, which she has just come from her primary care doctor where he gave her cortisone injections in her bilateral knees. She states that the methadone therapy has been beneficial and it is controlling her pain more effectively than OxyContin had in the past. She continues to take her oxycodone on an as needed basis. She feels that this combination as well as resting have been beneficial for her. The patient reports that she has been at the [facility] throughout the COVID outbreak. She feels this has also been beneficial. She has found herself relaxing and resting more than she had when she is in the city. ALLERGIES: No known drug allergies. CURRENT LIST OF MEDICATIONS: Methadone 5 mg tablets 10 in the morning, 7.5 midday, 7.5 at bedtime; Remeron 15 mg a day; OxyIR 10 mg p.r.n.; Ambien; Excedrin; Drisdol; valacyclovir; probiotic and Synthroid. PQRS: 1. She has osteoarthritis in her upper and lower extremities. Denies any rheumatoid arthritis. 2. Height is 5 feet 2 inches, weight is 175, BMI is 32. 3. Vital signs, 138/72, pulse is 91, respirations 14, oxygen sat is 98. 4. Pain score is 6-7. 5. Denies dizziness, does not need help walking or standing, has not fallen in the last 3 months. 6. The patient is not on any blood thinners or medicine for hypertension. 7. Opiate therapy is greater than 6 weeks; therefore, an opioid signed contract is on the chart. Risk assessment tool is low. Functional assessment is 54/70. 8. Recreational drug use, she denies. She is not a smoker and does not drink alcohol. [address] [address] PAIN MANAGEMENT CONSULTATION Name: SURENDRA DILLON Room #: REG [facility] Reina#: [id number] Admission: 07/13/19 Attend Phys: Kyra Reyes Discharge: Date of : 49 Report #: [id number] According to the prescription monitoring system, she recently filled prescriptions on 07/06/2019 for her methadone 5 mg as well as her oxycodone on 06/13/2019. According to the CDC guidelines, her morphine mEq is 110 MMEs. PHYSICAL EXAMINATION: GENERAL: This is alert and orientated, well-developed, well-nourished 73-year-old female who appears her stated age, placing her current pain score at 6/10. HEENT: Normocephalic, atraumatic. Extraocular eye muscles are intact. She is wearing a mask. MUSCULOSKELETAL: The patient has tenderness in her mid back in the thoracic spine. Pain is increased with flexion, extension and rotation. She has tenderness in her bilateral knees. IMPRESSION: 1. Chronic thoracic pain. 2. Severe osteoarthritis involving her hips, knees and shoulders. 3. Severe depression. 4. Management of high-risk medications under terms of written opioid agreement. PLAN: 1. We discussed treatment options with the patient today. The patient has found the epidural that Dr. Morris Ponce gave her in April was beneficial in reducing some of her pain at 60%, though it was only lasting about 2 weeks. She feels that the methadone therapy has been beneficial in helping relieve her pain and overall she feels like she is improved. 2. We discussed how she is currently taking her methadone. She has slowly increased. Currently taking a total of 25 mg per day. She states that Dr. Ponce had instructed her that she was able to go this high, though the dictations report 20 mg max. She has been stable on 10 mg in the morning, 7.5 midday and 7.5 at night. We will allow her to continue at this dose with no further escalation. Scripts will be sent for 150 tablets to be released on 07/27/2019 and then again in 7 weeks. 3. The patient continues to take her OxyIR 10 mg 3 times a day. I encouraged her to try to take these fewer, if able. We will send medications electronically for today and 4 weeks' supply. 4. The patient finds that the Remeron has been beneficial in helping with sleep as well as mood. We will continue this medicine at 15 mg, #30, with 2 additional refills. 5. Since the patient recently had her knees injected, I reminded her that is 3 injections in 3 months, so she will not be able to have any further steroids for several months due to the effects it has on the body. The patient verbalizes understanding. [facility] [address] [address] [address] PAIN MANAGEMENT CONSULTATION Name: KINJAMSURENDRA ZACH [facility] [id number] Admission: 07/13/19 Attend Phys: Kyra Reyes Discharge: Date of : 49 Report #: [id number] 6. The patient will return in 2 months for medication refill. She is seen in collaboration with Dr Ponce. <ELECTRONICALLY SIGNED> By: Kyra Reyes 07/14/19 0910 1520 1538 Kyra Reyes /nt
== END ==
LOC: PAIN 07:01
DX: M16.0 Bilateral primary osteoarthritis of hip (principal); M17.0 Bilateral primary osteoarthritis of knee; M19.012 Primary osteoarthritis, left shoulder; M19.011 Primary osteoarthritis, right shoulder; F32.9 Major depressive disorder, single episode, unspecified; Z79.891 Long term (current) use of opiate analgesic

== ENCOUNTER → 2019-08-17 | Outpatient (CLI) | payer OTHER, BC ==
[~2019-08-17] VITALS: Ht 157.5 cm; Wt 76.7 kg
[2019-08-17 13:11] VITALS: BP 120/74
--- NOTE | 2019-08-17 13:18 | NUR ---
Pain Clinic Assessment: 1. History of Osteoarthritis: Left Lower Extremity Left Upper Extremity Right Upper Extremity Right Lower Extremity History of Rheumatoid Arthritis: Not Applicable 2. Height: 5 ft. 2 in. 157.5 cm. Weight: 169.0 lb. oz. 76.658 kg. Patient's BMI: 30.9 3. Vital Signs: BP: 120/74 Pulse: 76 Resp: 18 Temp: 02 Sat: 96 ECG Mon: 4. Pain Intensity: 6 5. Fall Risk: Dizziness: N Needs help standing or walking: N Fallen in the last 3 months: N Fall risk comments: 6. Patient on Blood Thinner: None 7. History of Hypertension: N 8. Opioid Therapy greater than 6 weeks: Y Opiate Contract Signed: 03/24/16 9. Risk Assessment Tool Provided: low risk-1 10. Functional Assessment Tool: / 11. Recreational Drug Use: Never Drug Type: Tobacco Use: Never Smoker Tobacco Type: Amount or Packs/day: How Many Years: Alcohol Use: No Frequency: Quant:
--- NOTE | 2019-08-17 16:13 | HPC ---
[facility] [address] [address] PAIN MANAGEMENT CONSULTATION Name: SURENDRA DILLON Room #: REG [facility]..#: [id number] Admission: 08/17/19 Attend Phys: Kyra Reyes Discharge: Date of : 49 Report #: [id number] THIS REPORT FOR: cc: Judie Mckoy MD, Janice K. MD Hocker, Amanda CNS ~ CC: Morris Ponce MD DATE OF SERVICE: 08/17/2019 CHIEF COMPLAINT: Thoracic radiculopathy with status post extensive laminectomy. HISTORY OF PRESENT ILLNESS: This is a very anxious 74-year-old female who returns to the pain clinic today with her daughter to discuss her ongoing thoracic and lumbar pain. Her pain is located at her bra line that does radiate downward. She does also have right shoulder pain and bilateral knee pain. She reports a pain score of 6/10 today. It is a sharp, aching pain. At times, it is well controlled with her medications of methadone and oxycodone. At other times, she reports being in bed for several days at a time. Today, she would like refills of her medication, but also to discuss an intrathecal pump. She is planning on seeing Dr. Aroldo Valencia for consideration of a pump in the next month. The daughter is here voicing concerns at how times patient is very upbeat and feeling that the medication is very helpful, then other days she has been in pain and in bed and is very depressed, complaining that she is having significant pain. She is wondering if it is time for the pump to be placed or she should continue on her current regimen until it is no longer effective. ALLERGIES: No known drug allergies. CURRENT LIST OF MEDICATIONS: OxyIR 10 mg up to 3 times a day, Remeron 15 mg at bedtime, methadone 10 mg in the morning and 7.5 mg midday and at bedtime, Ambien p.r.n., aspirin, Drisdol, valacyclovir, probiotic and Synthroid. PQRS: 1. She has significant osteoarthritis in her upper and lower extremities as well as her spine. She denies any rheumatoid arthritis. 2. Height is 5 feet 2 inches, weight is 169, BMI is 30. 3. Vital signs 120/74, pulse is 76, respirations 18, oxygen sat is 96. 4. Pain score 6/10. 5. Denies dizziness, does not need help walking or standing, has not fallen in the last 3 months. 6. The patient is not on any blood thinners, but does not take medicine for hypertension. Her opioid therapy is greater than 6 weeks; therefore, an opioid signed contract is on the chart. [address] [address] PAIN MANAGEMENT CONSULTATION Name: SURENDRA DILLON Room #: REG [facility] Reina#: [id number] Admission: 08/17/19 Attend Phys: Kyra Reyes Discharge: Date of : 49 Report #: [id number] 7. Risk assessment tool is low. Functional assessment is 54/70. 8. Recreational drug use, she denies. She is not a smoker and does not drink alcohol. According to the prescription monitoring system, the patient is due to fill her oxycodone today, but her methadone is not due for a couple of weeks. She does fill these accordingly to the prescribed amount. Her morphine mEq according to the CDC guidelines are 115 MMEs per day. PHYSICAL EXAMINATION: GENERAL: This is alert and orientated, very anxious well-developed, well-nourished 74-year-old female who appears her stated age, placing her current pain score at 6/10 today. HEENT: Normocephalic, atraumatic. Extraocular eye muscles are intact. She is wearing a mask. MUSCULOSKELETAL: Pain is increased with flexion, extension, rotation of her mid back. She has tenderness in her thoracic area at her bra line. She has tenderness in her bilateral knees with no effusion noted. She walks with a slightly antalgic gait. Tenderness located in her lumbar area. IMPRESSION: 1. Chronic thoracic pain. 2. Severe osteoarthritis involving her hips, knees and shoulders. 3. Severe depression and anxiety. 4. Management of high risk medications under terms of written opioid agreement. We reviewed the fact that opiate medications are being used to provide analgesia adequate to support activities of daily living, not attempting to achieve a specific pain score on the 0-10 Visual Analog Scale. The current opiate medications are providing sufficient analgesia to allow the patient to participate in activities of daily living. The patient is not exhibiting any aberrant behavior suggestive of drug diversion. The patient is not having any adverse reactions to medications. The patient is not suffering from daytime somnolence or mental acuity changes. The patient is managing opiate-induced constipation with appropriate pyes-lcl-jomamez agents and dietary considerations. The patient was counseled on concern for caution with operating a motor vehicle while using opiate medications. PLAN: 1. We discussed treatment options with the patient today. We discussed intrathecal pain pump versus opioid oral medications. Currently, the patient feels like she is fairly well controlled on her current regimen, taking a half a tablet of her OxyIR 4-5 times a day as well as her methadone though she thinks she should pursue the intrathecal pump route to see if that is more beneficial. I encouraged her to discuss this with Dr. Valencia and his staff, they would be managing the pump if she did have a successful trial and therefore we would wean [facility] [address] [place] [address] PAIN MANAGEMENT CONSULTATION Name: SURENDRA DILLON Room #: REG [facility] M.Gina.#: [id number] Admission: 08/17/19 Attend Phys: Kyra Reyes Discharge: Date of : 49 Report #: [id number] her off her oral medications. She may find that she wants to continue on her oral regimen for several months since she is doing quite well and then try the pump at a later date, but I encouraged them to at least discuss this with Dr. Valencia. 2. We will refill her methadone 5 mg tablets, patient takes 10 mg in the morning, 7.5 midday and 7.5 at night, quantity of 150. These will be released for 08/29 and 09/26. 3. The patient states that she continues her OxyIR half a tablet no more than 3 tablets total in a day. She does report she has 10 to 12 medicines left, but she would like to have the prescriptions on the same date as her methadone; therefore, we will give her a short script of 30 pills of her OxyIR to release today, then a prescription to release on 08/30/2019 for 90 pills as well as one for 09/26 release for 90 pills, so her methadone and OxyIR are the same. The patient was instructed to bring her medications with her at her next visit, we may decrease her OxyIR dose if she is not taking the full amount on a daily basis. We prefer not to have excess of medication at home and stress lowest most effective dose. 4. The patient finds the Remeron has been beneficial with sleep. At times, she feels slightly hungover in the morning. I encouraged her to take it an hour or two before bedtime to see if this may aid in decreasing the sleepiness. 5. The patient will return in 2 months after she has seen Dr. Valencia. Patient is seen in collaboration with Dr. Morris Ponce today. <ELECTRONICALLY SIGNED> By: Kyra Reyes 08/17/19 1613 1434 1605 Kyra Reyes /nt
== END ==
LOC: PAIN 07:06
PROVIDERS: ATTEND Clinical Nurse Specialist Adult Health
DX: M17.0 Bilateral primary osteoarthritis of knee (principal); M16.0 Bilateral primary osteoarthritis of hip; M19.012 Primary osteoarthritis, left shoulder; M19.011 Primary osteoarthritis, right shoulder; M96.1 Postlaminectomy syndrome, not elsewhere classified; Z79.899 Other long term (current) drug therapy; Z79.891 Long term (current) use of opiate analgesic

== ENCOUNTER → 2019-10-19 | Outpatient (CLI) | payer OTHER, BC ==
[~2019-10-19] VITALS: Ht 157.5 cm; Wt 77.7 kg
[~2019-10-19] MED LIST changes: +MIRTAZAPINE15 M2 PO
[2019-10-19 13:54] VITALS: BP 141/84
--- NOTE | 2019-10-19 14:04 | NUR ---
Pain Clinic Assessment: 1. History of Osteoarthritis: Left Lower Extremity Left Upper Extremity Right Upper Extremity Right Lower Extremity History of Rheumatoid Arthritis: Not Applicable 2. Height: 5 ft. 2 in. 157.5 cm. Weight: 171.2 lb. oz. 77.656 kg. Patient's BMI: 31.3 3. Vital Signs: BP: 141/84 Pulse: 90 Resp: 14 Temp: 02 Sat: 97 ECG Mon: 4. Pain Intensity: 4 5. Fall Risk: Dizziness: N Needs help standing or walking: N Fallen in the last 3 months: N Fall risk comments: 6. Patient on Blood Thinner: None 7. History of Hypertension: N 8. Opioid Therapy greater than 6 weeks: Y Opiate Contract Signed: 03/24/16 9. Risk Assessment Tool Provided: low risk-1 10. Functional Assessment Tool: 54/70 11. Recreational Drug Use: Never Drug Type: Tobacco Use: Never Smoker Tobacco Type: Amount or Packs/day: How Many Years: Alcohol Use: No Frequency: Quant:
--- NOTE | 2019-10-20 07:35 | HPC ---
[facility] [address] [employer] [place] [address] PAIN MANAGEMENT CONSULTATION Name: SURENDRA DILLON Room #: REG [facility]Walker.#: [id number] Admission: 10/19/19 Attend Phys: Kyra Reyes Discharge: Date of : 49 Report #: [id number] THIS REPORT FOR: cc: Judie Mckoy MD, Janice K. MD Hocker, Amanda CNS ~ CC: Aroldo Ponce MD DATE OF SERVICE: 10/19/2019 CHIEF COMPLAINT: Thoracic radiculopathy with status post extensive laminectomy. HISTORY OF PRESENT ILLNESS: This is a 74-year-old female who returns to our clinic today for refill of her medication management and to discuss her ongoing intrathecal pump trial by Dr. Aroldo Valencia. The patient reports that she is going to have this scheduled on October 29 for the intrathecal trial and if it is beneficial, she will have an implant of the intrathecal pump on the 31 of October. The patient reports that her pain is worse on the mid back, thoracic area on the right side as well as her bilateral knees and right shoulder rating her pain 4-5/10 today. It is a sharp, aching pain. She feels that the methadone has been beneficial as well as lying down, but she is hopeful for better pain control with intrathecal pump. She denies problems with constipation or daytime somnolence as a result of her medications. She does feel that the Remeron that she has been taking at night has been very beneficial and allowing her to sleep quite well. ALLERGIES: No known drug allergies. CURRENT LIST OF MEDICATIONS: Oxycodone IR 10 mg t.i.d., methadone 10 mg in the morning and 7.5 mg midday, 7.5 mg at night, Remeron 15 mg at bedtime, Excedrin capsules, Drisdol, valacyclovir, probiotic and Synthroid. PQRS: 1. She has osteoarthritic changes in her upper and lower extremities. Denies any rheumatoid arthritis. 2. Height is 5 feet 2 inches, weight is 171. BMI is 31. 3. Vital signs 141/84, pulse is 90, respirations 14, oxygen sat is 97%. 4. Pain score is 4/10. 5. Denies dizziness, does not need help walking or standing, has not fallen in the last 3 months. 6. The patient is not on any blood thinners or medicine for hypertension. 7. Opioid therapy is greater than 6 weeks; therefore, an opioid signed contract [address] [address] PAIN MANAGEMENT CONSULTATION Name: SURENDRA DILLON Room #: REG [facility].#: [id number] Admission: 10/19/19 Attend Phys: Kyra Reyes Discharge: Date of : 49 Report #: [id number] is on the chart. Risk assessment tool is low. Functional assessment is 54/70. 8. Recreational drug use, she denies. She is not a smoker and does not drink alcohol. According to the prescription monitoring system, the patient is due to fill her medications next week. She is filling them in a timely fashion. Her morphine milliequivalent according to the CDC guidelines is 115. This is above the CDC recommendations. But the patient has been stable on this meds for quite some time. We will check a random drug screen on this patient today. PHYSICAL EXAMINATION: GENERAL: This is alert and orientated, anxious, well-developed, well-nourished 74-year-old female who appears her stated age, placing her current pain score at 5/10 today. HEENT: Normocephalic, atraumatic. Extraocular eye muscles are intact. She is wearing a mask. MUSCULOSKELETAL: She has tenderness in her thoracic area at her bra line. Pain is increased with flexion, extension and rotation of her thoracic spine. She has tenderness in her bilateral knees with no edema noted. She has antalgic gait. IMPRESSION: 1. Chronic thoracic pain. 2. Severe osteoarthritis involving hips, knees and shoulders. 3. Severe depression and anxiety. 4. Management of high risk medications under terms of written opioid agreement. We reviewed the fact that opiate medications are being used to provide analgesia adequate to support activities of daily living, not attempting to achieve a specific pain score on the 0-10 Visual Analog Scale. The current opiate medications are providing sufficient analgesia to allow the patient to participate in activities of daily living. The patient is not exhibiting any aberrant behavior suggestive of drug diversion. The patient is not having any adverse reactions to medications. The patient is not suffering from daytime somnolence or mental acuity changes. The patient is managing opiate-induced constipation with appropriate fudh-ead-fljacwz agents and dietary considerations. The patient was counseled on concern for caution with operating a motor vehicle while using opiate medications. A physical exam was performed and the patient's functional status was evaluated. All patients with back pain were advised against the bed rest greater than 4 days and were advised to return to normal activities. Pain score assessment was noted and the treatment plan was reviewed with the patient. All current medications, both prescribed and OTC were reviewed and reconciled on the electronic medical record. Tobacco screening was accomplished and smoking cessation was advised when indicated. BMI was noted and diet/exercise [address] [address] PAIN MANAGEMENT CONSULTATION Name: SURENDRA DILLON Room #: REG [facility].#: [id number] Admission: 10/19/19 Attend Phys: Kyra LISANDRO Eric Discharge: Date of : 47 Report #: [id number] modification was recommended for all patients following outside normal parameters. I reviewed with the patient today their responsibilities to safeguard prescription medications, reviewed their responsibility to utilize medications only as prescribed by the physician. They are to seek and receive pain medications only from 1 physician group ( [facility]). They are to use 1 pharmacy and keep the clinic informed if they change pharmacies. Their responsibilities include making followup visits in a timely fashion and to avoid abrupt discontinuation of medication usage. Their responsibilities further include bringing their medications (bottles from the pharmacy with residual pills) to the visit for possible confirmation of pill counts and the patient understands it is their responsibility to submit to random drug screens to ensure both that the medications prescribed are present, and that no other controlled substances are present. All prescriptions provided today were generated electronically. PLAN: 1. We discussed treatment options with the patient today. The patient has found the methadone has been beneficial, but is hopeful that she will have better pain control with an intrathecal pump. She is scheduled on October 29; therefore, we have instructed her to decrease her methadone starting today and tomorrow to 5 mg in the midday dose. Then, on October 20 she is to start methadone 10 mg in the morning and 7.5 mg at bedtime until her trial. On the day of her trial, she is instructed to take 5 mg of methadone in the morning prior to starting her trial. We encouraged her to take her oxycodone IR as needed during this time. 2. I encouraged the patient to make sure she does have a pulse oximeter placed throughout her trial at the hospital. They will be monitoring her respiratory status throughout the trial I explained. 3. Dr. Ponce will supply one month of medication of her methadone, #150 and oxycodone IR 10 mg #90. This will be reevaluated once we find if she does have the intrathecal pump placed or if she will continue on opioid medications. I explained to the patient when she does have an intrathecal pump placed. Dr. Valencia will manage her pump and we will wean her off her methadone. The patient verbalizes understanding. 4. I will send her mirtazapine 15 mg, #30 with 2 additional refills to the pharmacy as well. 5. We did collect a random drug screen on this patient today. The patient is seen today in collaboration with Dr. Morris Ponce. <ELECTRONICALLY SIGNED> By: Kyra Reyes 10/20/19 0735 1530 1943 Kyra Reyes /mike
== END ==
LOC: PAIN 09-21 13:19
PROVIDERS: ATTEND Clinical Nurse Specialist Adult Health
DX: M54.14 Radiculopathy, thoracic region (principal); M96.1 Postlaminectomy syndrome, not elsewhere classified; M16.0 Bilateral primary osteoarthritis of hip; M17.0 Bilateral primary osteoarthritis of knee; M19.012 Primary osteoarthritis, left shoulder; M19.011 Primary osteoarthritis, right shoulder; F41.8 Other specified anxiety disorders; F11.20 Opioid dependence, uncomplicated; Z79.899 Other long term (current) drug therapy

== ENCOUNTER → 2019-11-13 | Outpatient (CLI) | payer OTHER, BC ==
[~2019-11-13] VITALS: Ht 157.5 cm; Wt 79.7 kg
[~2019-11-13] MED LIST changes: +NARCAN4 MG NARES
--- NOTE | ~2019-11-13 | HPC ---
[facility] [place] [address] PAIN MANAGEMENT CONSULTATION Name: SURENDRA DILLON Room #: REG YUMIKO Shonna.#: [id number] Admission: 11/13/19 Attend Phys: Morris Ponce MD Discharge: Date of : 49 Report #: [id number] CC: Judie Ponce DATE OF SERVICE: 11/13/2019 Followup visit for chronic intractable back pain, chronic osteoarthritis, depression and anxiety. The patient has a new intrathecal infusion pump, here for adjustment. The patient returns today for her first in-clinic adjustment. Dr. Valencia placed an intrathecal pump and it is healing well. Incisions are looking good. She still has a little bit to go with a small amount of eschar noted on both her back and front incision, but they look good with no evidence of infection. She is highly anxious, concerned that the pump would not work. I told her today that we had ample opportunity to increase her pump and add other medications and discussed some of the polyanalgesic recommendations that we may ultimately use to pump most effectively. Her daughter was with her. We javy diagrams; discussed opioids, clonidine, baclofen, Prialt and combinations that have been successful in the past. We will try and stick with monotherapy. Today, she is here for simple pump adjustment. She is currently receiving very low dose hydromorphone at 0.1 mg per day. I feel comfortable increasing this to 0.2 and for percentage, this is an 80% increase, but quite frankly is still considered at low dose intrathecal therapy for someone who is opioid tolerant. Programming was performed. I am going to see her at weekly intervals until we come up with a program that she feels stable on and we will continue to taper her off of her oral opioids. Next visit is scheduled for Wednesday. Total time spent in consultation and an increase in pump medication is about 25 minutes. By: [id number] Morris Ponce MD /nt
[2019-11-13 09:07] VITALS: BP 112/71
--- NOTE | 2019-11-13 09:37 | NUR ---
Pain Clinic Assessment: 1. History of Osteoarthritis: Left Lower Extremity Left Upper Extremity Right Upper Extremity Right Lower Extremity History of Rheumatoid Arthritis: DENIES 2. Height: 5 ft. 2 in. 157.5 cm. Weight: 175.8 lb. oz. 79.742 kg. Patient's BMI: 32.1 3. Vital Signs: BP: 112/71 Pulse: 81 Resp: 16 Temp: 02 Sat: 100 ECG Mon: 4. Pain Intensity: 5-6 5. Fall Risk: Dizziness: N Needs help standing or walking: N Fallen in the last 3 months: N Fall risk comments: 6. Patient on Blood Thinner: None 7. History of Hypertension: N 8. Opioid Therapy greater than 6 weeks: Y Opiate Contract Signed: 03/24/16 9. Risk Assessment Tool Provided: low risk-1 10. Functional Assessment Tool: / 11. Recreational Drug Use: Never Drug Type: Tobacco Use: Never Smoker Tobacco Type: Amount or Packs/day: How Many Years: Alcohol Use: No Frequency: Quant:
== END | disposition home or self-care (01) ==
LOC: PAIN 06:56
PROVIDERS: ATTEND Anesthesiology Pain Medicine
DX: G89.29 Other chronic pain (principal); M19.90 Unspecified osteoarthritis, unspecified site; F41.9 Anxiety disorder, unspecified; F32.9 Major depressive disorder, single episode, unspecified

== ENCOUNTER → 2019-11-23 | Outpatient (CLI) | payer OTHER, BC ==
[~2019-11-23] VITALS: Ht 157.5 cm; Wt 80.4 kg
[~2019-11-23] MED LIST changes: +PROZAC 10 MG CA10 MG PO
--- NOTE | ~2019-11-23 | HPC ---
[facility] [address] [place] [address] PAIN MANAGEMENT CONSULTATION Name: SURENDRA DILLON Room #: REG YUMIKO Roverto.R.#: [id number] Admission: 11/23/19 Attend Phys: Morris Ponce MD Discharge: Date of : 49 Report #: [id number] CC: IVAN Ponce DATE OF SERVICE: 11/23/2019 Followup visit for adjustment of intrathecal infusion pump. The patient and her daughter are here today for new medication in her intrathecal pump. She is currently infusing a monotherapy with hydromorphone and I am switching her to hydromorphone plus clonidine. She has neuropathic symptoms that radiate into her legs as her most prominent symptoms. We discussed this at some length. We have been doubling her dose at each visit. She is now at 0.4 mg of hydromorphone per day. She is taking less opioid than she was at the beginning of this process when she was taking methadone plus oxycodone. She is now only taking oxycodone and on a p.r.n. basis at that. Nonetheless, she does not feel that she is doing as well as she had anticipated and we will make some adjustments today; again increasing her intrathecal opioid along with the clonidine with hopes that we can control the symptoms. I did discuss with her the importance of expectations. IMPRESSION: 1. 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 2. Osteoarthritis involving hips, knees and shoulders. 3. Chronic thoracic pain. 4. Severe depression and anxiety. PROCEDURE: Refill and reprogramming. DESCRIPTION OF PROCEDURE: After informed consent, she was taken to fluoroscopic suite. There was too much fluid around the pump for me to comfortably feel that we could place a needle into the pump and I am always concerned about the fluid around the pump being mistaken for intrathecal medication in the pump. A significant amount of serous fluid remains around the pump for the first 6 weeks to 3 months. Under fluoroscopic guidance, I was able to easily guide the needle into the pump and aspirated exactly 37 mL. The expected volume was discarded per protocol. Pump was then refilled with hydromorphone and clonidine. A reprogramming session was performed. The hydromorphone was increased from 0.4 to 0.6 mg per day and the clonidine was initiated at 15 mcg a day. I plan to see her back in the pain clinic in 1 week or less. Her bridge bolus was calculated at 33 hours. I only placed 10 mL in the pump because there is possibility we may make further adjustments. If she stays at this dose, she has over a month of medication. I suspect we will likely titrate her higher. By: [id number] Morris Ponce MD /nt
[2019-11-23 14:58] VITALS: BP 116/76
--- NOTE | 2019-11-23 15:11 | NUR ---
Pain Clinic Assessment: 1. History of Osteoarthritis: Left Lower Extremity Left Upper Extremity Right Upper Extremity Right Lower Extremity History of Rheumatoid Arthritis: DENIES 2. Height: 5 ft. 2 in. 157.5 cm. Weight: 177.2 lb. oz. 80.377 kg. Patient's BMI: 32.4 3. Vital Signs: BP: 116/76 Pulse: 80 Resp: 20 Temp: 02 Sat: 100 ECG Mon: 4. Pain Intensity: 7 5. Fall Risk: Dizziness: N Needs help standing or walking: N Fallen in the last 3 months: N Fall risk comments: 6. Patient on Blood Thinner: None 7. History of Hypertension: N 8. Opioid Therapy greater than 6 weeks: Y Opiate Contract Signed: 03/24/16 9. Risk Assessment Tool Provided: low risk-1 10. Functional Assessment Tool: 54/ 11. Recreational Drug Use: Never Drug Type: Tobacco Use: Never Smoker Tobacco Type: Amount or Packs/day: How Many Years: Alcohol Use: No Frequency: Quant:
== END | disposition home or self-care (01) ==
LOC: PAIN 12:20
PROVIDERS: ATTEND Anesthesiology Pain Medicine
DX: Z45.1 Encounter for adjustment and management of infusion pump (principal); G89.29 Other chronic pain; M96.1 Postlaminectomy syndrome, not elsewhere classified; M54.16 Radiculopathy, lumbar region; M19.90 Unspecified osteoarthritis, unspecified site; F32.9 Major depressive disorder, single episode, unspecified; F41.9 Anxiety disorder, unspecified; Z98.890 Other specified postprocedural states; Z79.899 Other long term (current) drug therapy

== ENCOUNTER → 2019-11-27 | Outpatient (CLI) | payer OTHER, BC ==
[~2019-11-27] VITALS: Ht 157.5 cm; Wt 80.3 kg
--- NOTE | ~2019-11-27 | HPC ---
[facility] [address] [place] [address] PAIN MANAGEMENT CONSULTATION Name: SURENDRA DILLON Room #: REG YUMIKO Shonna.#: [id number] Admission: 11/27/19 Attend Phys: Morris Ponce MD Discharge: Date of : 49 Report #: [id number] CC: Judie Ponce DATE OF SERVICE: 11/27/2019 Followup visit for intrathecal therapy. The patient returns to pain clinic today for an increase once again of her intrathecal pump. She has shown great tolerance to her opioid medication. We have gradually increased her medicine by doubling it with no effect, whatsoever. She has been off of methadone now for some time, but continues to take oral oxycodone and supplement of her pain medication because she is not getting enough relief from the intrathecal medicine. I have told her that we will carefully increase medicine. We do have some patients again that are very high dose, but I am not taking her up that high immediately and we will do this in a stepwise fashion. By increasing both hydromorphone and clonidine today at the higher levels, we should be reaching a zone where I think she will see more pain relief. I have recommended hydromorphone 1.2 mg per day with clonidine at 30 mcg per day. I am also going to discontinue oxycodone and reinitiate methadone. I think we can do this safely. She has been on it before. She has never shown any signs of overmedication, even up to doses as high as 30 mg. We will start her at 5 mg in the morning. She can increase it to 5 b.i.d., then five t.i.d. if necessary as an adjunct and we will take her off of the OxyIR [address] she is currently taking her oral oxycodone, her morphine mEq is 45. Methadone using conversion factor of 3 would be roughly the same dose at 15 mg a day. PHYSICAL EXAMINATION: She is anxious, depressed and a bit pessimistic. Blood pressure is 117/87, heart rate 80, respirations 14, pain intensity 8/10. Pain is generalized throughout the upper and lower extremities. She does have radicular pain as well as other aches and pains consistent with neuropathy. Pain across her lumbosacral segment is noted. IMPRESSION: Intractable pain with intrathecal pump adjustment. Reprogramming session performed, copy provided to the patient improved by myself and the nurse. New medications were ordered electronically. By: [id number] Morris Ponce MD /nt
[2019-11-27 09:30] VITALS: BP 117/82
--- NOTE | 2019-11-27 09:33 | NUR ---
Pain Clinic Assessment: 1. History of Osteoarthritis: Left Lower Extremity Left Upper Extremity Right Upper Extremity Right Lower Extremity History of Rheumatoid Arthritis: DENIES 2. Height: 5 ft. 2 in. 157.5 cm. Weight: 177.0 lb. oz. 80.287 kg. Patient's BMI: 32.4 3. Vital Signs: BP: 117/82 Pulse: 88 Resp: 14 Temp: 02 Sat: 99 ECG Mon: 4. Pain Intensity: 8 5. Fall Risk: Dizziness: N Needs help standing or walking: N Fallen in the last 3 months: N Fall risk comments: 6. Patient on Blood Thinner: None 7. History of Hypertension: N 8. Opioid Therapy greater than 6 weeks: Y Opiate Contract Signed: 03/24/16 9. Risk Assessment Tool Provided: low risk-1 10. Functional Assessment Tool: 54/ 11. Recreational Drug Use: Never Drug Type: Tobacco Use: Never Smoker Tobacco Type: Amount or Packs/day: How Many Years: Alcohol Use: No Frequency: Quant:
== END | disposition home or self-care (01) ==
LOC: PAIN 09:13
PROVIDERS: ATTEND Anesthesiology Pain Medicine
DX: Z45.1 Encounter for adjustment and management of infusion pump (principal); G89.29 Other chronic pain; Z98.890 Other specified postprocedural states; Z79.899 Other long term (current) drug therapy

== ENCOUNTER → 2019-12-04 | Outpatient (CLI) | payer OTHER, BC ==
[~2019-12-04] VITALS: Ht 162.6 cm; Wt 80.3 kg
--- NOTE | ~2019-12-04 | HPC ---
[facility] [place] [address] PAIN MANAGEMENT CONSULTATION Name: SURENDRA DILLON Room #: REG YUMIKO Kilpatrick.#: [id number] Admission: 12/04/19 Attend Phys: Morris Ponce MD Discharge: Date of : 49 Report #: [id number] CC: Judie Ponce DATE OF SERVICE: 12/04/2019 Followup visit for chronic intractable back pain and adjustment of intrathecal infusion pump. The patient is here for her weekly visit. We have been adjusting her intrathecal pump aggressively to try and achieve the hope for benefit promised by the intrathecal pump. She reinitiated methadone twice a day and I doubled her medicine at last visit. She is finally better. She still has pain, but at the level of 4-6. Her mood is better. She is sleeping better. Her daughter thinks she is better. I think we are getting close to a dose that is reasonable and she may not need to continue on methadone for it's special opioid effects and NMDA antagonism for neuropathic pain. Baseline of methadone seems to be reasonable and her dose is relatively low at 5 mg b.i.d. She denies any significant side effects at this point. PHYSICAL EXAMINATION: GENERAL: She is pleasant, more upbeat today. VITAL SIGNS: Blood pressure 119/64, heart rate 84, respirations 14, O2 sat 98, pain intensity still 5-6/10, but this is a marked improvement. NEUROLOGIC: Her gait is more stable. PSYCHIATRIC: Her mood is improved. CHEST: Clear. CARDIAC: Rhythm is regular. IMPRESSION: Intractable pain with gradual adjustments to provide relief with intrathecal pump. MEDICATIONS ASSESSMENT: I did discuss with the patient in fact that she went to the hospital due to shortness of breath. This is past. Chest x-ray did show some nodules. She plans to follow up with her primary care physician. I do not have copy of those films at this time, but she has an appointment on . PROCEDURE: Reprogramming intrathecal infusion pump. I used the programmer developer to increase her dose by 30%. This is a smaller adjustment than we have had recently. She will go from 1.2 mg of hydromorphone to 1.6, 30 mcg of clonidine to 42 mcg. She will continue on her methadone was programmed. Her next visit will be in 10 days when I will refill her pump with hydromorphone and clonidine. Higher concentrations will be used and will use a full volume. Copy of the programming information was provided to the patient. She was discharged along with her daughter. Pump alarm date is 12/15. By: [id number] Morris Ponce MD /nt
[2019-12-04 08:55] VITALS: BP 119/64
--- NOTE | 2019-12-04 09:03 | NUR ---
Pain Clinic Assessment: 1. History of Osteoarthritis: Left Lower Extremity Left Upper Extremity Right Upper Extremity Right Lower Extremity History of Rheumatoid Arthritis: DENIES 2. Height: 5 ft. 4 in. 162.6 cm. Weight: 177.0 lb. oz. 80.287 kg. Patient's BMI: 30.4 3. Vital Signs: BP: 119/64 Pulse: 84 Resp: 14 Temp: 02 Sat: 98 ECG Mon: 4. Pain Intensity: 5-6 5. Fall Risk: Dizziness: N Needs help standing or walking: N Fallen in the last 3 months: N Fall risk comments: 6. Patient on Blood Thinner: None 7. History of Hypertension: N 8. Opioid Therapy greater than 6 weeks: Y Opiate Contract Signed: 03/24/16 9. Risk Assessment Tool Provided: low risk-1 10. Functional Assessment Tool: 54/ 11. Recreational Drug Use: Never Drug Type: Tobacco Use: Never Smoker Tobacco Type: Amount or Packs/day: How Many Years: Alcohol Use: No Frequency: Quant:
== END | disposition home or self-care (01) ==
LOC: PAIN 06:43
PROVIDERS: ATTEND Anesthesiology Pain Medicine
DX: Z45.1 Encounter for adjustment and management of infusion pump (principal); G89.29 Other chronic pain; Z98.890 Other specified postprocedural states; Z79.899 Other long term (current) drug therapy

== ENCOUNTER → 2019-12-14 | Outpatient (CLI) | payer OTHER, BC ==
[~2019-12-14] VITALS: Ht 162.6 cm; Wt 82.3 kg
[~2019-12-14] MED LIST changes: +SPIRONOLACTONE50 MG PO
[2019-12-14 10:44] VITALS: BP 124/63
--- NOTE | 2019-12-14 10:50 | NUR ---
Pain Clinic Assessment: 1. History of Osteoarthritis: Left Lower Extremity Left Upper Extremity Right Upper Extremity Right Lower Extremity History of Rheumatoid Arthritis: DENIES 2. Height: 5 ft. 4 in. 162.6 cm. Weight: 181.4 lb. oz. 82.283 kg. Patient's BMI: 31.1 3. Vital Signs: BP: 124/63 Pulse: 75 Resp: 20 Temp: 02 Sat: 96 ECG Mon: 4. Pain Intensity: 6 5. Fall Risk: Dizziness: Needs help standing or walking: Fallen in the last 3 months: Fall risk comments: 6. Patient on Blood Thinner: None 7. History of Hypertension: N 8. Opioid Therapy greater than 6 weeks: Y Opiate Contract Signed: 03/24/16 9. Risk Assessment Tool Provided: low risk-1 10. Functional Assessment Tool: 11. Recreational Drug Use: Never Drug Type: Tobacco Use: Never Smoker Tobacco Type: Amount or Packs/day: How Many Years: Alcohol Use: No Frequency: Quant:
== END | disposition home or self-care (01) ==
LOC: PAIN 06:52
PROVIDERS: ATTEND Anesthesiology Pain Medicine
DX: Z45.1 Encounter for adjustment and management of infusion pump (principal); M96.1 Postlaminectomy syndrome, not elsewhere classified; F41.8 Other specified anxiety disorders; F32.9 Major depressive disorder, single episode, unspecified; M19.90 Unspecified osteoarthritis, unspecified site; Z98.890 Other specified postprocedural states; Z79.899 Other long term (current) drug therapy; Z79.891 Long term (current) use of opiate analgesic

== ENCOUNTER → 2019-12-18 | Outpatient (CLI) | payer OTHER, BC ==
[~2019-12-18] VITALS: Ht 162.6 cm; Wt 83.7 kg
[2019-12-18 08:45] VITALS: BP 129/70
--- NOTE | 2019-12-18 08:50 | NUR ---
Pain Clinic Assessment: 1. History of Osteoarthritis: Left Lower Extremity Left Upper Extremity Right Upper Extremity Right Lower Extremity History of Rheumatoid Arthritis: DENIES 2. Height: 5 ft. 4 in. 162.6 cm. Weight: 184.6 lb. oz. 83.734 kg. Patient's BMI: 31.7 3. Vital Signs: BP: 129/70 Pulse: 75 Resp: 20 Temp: 02 Sat: 99 ECG Mon: 4. Pain Intensity: 5 5. Fall Risk: Dizziness: N Needs help standing or walking: N Fallen in the last 3 months: N Fall risk comments: 6. Patient on Blood Thinner: None 7. History of Hypertension: N 8. Opioid Therapy greater than 6 weeks: Y Opiate Contract Signed: 03/24/16 9. Risk Assessment Tool Provided: low risk-1 10. Functional Assessment Tool: 53/ 11. Recreational Drug Use: Never Drug Type: Tobacco Use: Never Smoker Tobacco Type: Amount or Packs/day: How Many Years: Alcohol Use: No Frequency: Quant:
== END ==
LOC: PAIN 08:19
PROVIDERS: ATTEND Anesthesiology Pain Medicine
DX: G89.4 Chronic pain syndrome (principal); R91.8 Other nonspecific abnormal finding of lung field; M96.1 Postlaminectomy syndrome, not elsewhere classified

== ENCOUNTER → 2019-12-21 | Outpatient (CLI) | payer OTHER, BC ==
[~2019-12-21] VITALS: Ht 162.6 cm; Wt 81.7 kg
[2019-12-21 10:30] VITALS: BP 111/64
== END | disposition home or self-care (01) ==
LOC: PAIN 06:50
PROVIDERS: ATTEND Anesthesiology Pain Medicine
DX: Z45.1 Encounter for adjustment and management of infusion pump (principal); G89.29 Other chronic pain; M96.1 Postlaminectomy syndrome, not elsewhere classified; Z79.891 Long term (current) use of opiate analgesic; Z98.890 Other specified postprocedural states; Z79.899 Other long term (current) drug therapy

== ENCOUNTER → 2020-01-22 | Outpatient (CLI) | payer OTHER, BC ==
[~2020-01-22] VITALS: Ht 157.5 cm; Wt 81.0 kg
[2020-01-22 12:40] VITALS: BP 113/76
--- NOTE | 2020-01-22 12:56 | NUR ---
Pain Clinic Assessment: 1. History of Osteoarthritis: Left Lower Extremity Left Upper Extremity Right Upper Extremity Right Lower Extremity lynne knees History of Rheumatoid Arthritis: DENIES 2. Height: 5 ft. 2 in. 157.5 cm. Weight: 178.6 lb. oz. 81.012 kg. Patient's BMI: 32.7 3. Vital Signs: BP: 113/76 Pulse: 89 Resp: 18 Temp: 02 Sat: 98 ECG Mon: 4. Pain Intensity: 6 5. Fall Risk: Dizziness: N Needs help standing or walking: N Fallen in the last 3 months: N Fall risk comments: 6. Patient on Blood Thinner: None 7. History of Hypertension: N 8. Opioid Therapy greater than 6 weeks: Y Opiate Contract Signed: 03/24/16 9. Risk Assessment Tool Provided: low risk-1 10. Functional Assessment Tool: 11. Recreational Drug Use: Never Drug Type: Tobacco Use: Never Smoker Tobacco Type: Amount or Packs/day: How Many Years: Alcohol Use: No Frequency: Quant:
== END | disposition home or self-care (01) ==
LOC: PAIN 06:58
PROVIDERS: ATTEND Anesthesiology Pain Medicine
DX: Z45.1 Encounter for adjustment and management of infusion pump (principal); G89.4 Chronic pain syndrome; M96.1 Postlaminectomy syndrome, not elsewhere classified; M47.896 Other spondylosis, lumbar region; F32.9 Major depressive disorder, single episode, unspecified; F41.9 Anxiety disorder, unspecified; G47.00 Insomnia, unspecified; Z98.890 Other specified postprocedural states; Z79.899 Other long term (current) drug therapy; Z79.891 Long term (current) use of opiate analgesic

== ENCOUNTER → 2020-02-26 | Outpatient (CLI) | payer OTHER, BC ==
[~2020-02-26] VITALS: Ht 157.5 cm; Wt 78.6 kg
[2020-02-26 10:57] VITALS: BP 104/64
--- NOTE | 2020-02-26 11:07 | NUR ---
Pain Clinic Assessment: 1. History of Osteoarthritis: Left Lower Extremity Left Upper Extremity Right Upper Extremity Right Lower Extremity lynne knees History of Rheumatoid Arthritis: DENIES 2. Height: 5 ft. 2 in. 157.5 cm. Weight: 173.2 lb. oz. 78.563 kg. Patient's BMI: 31.7 3. Vital Signs: BP: 104/64 Pulse: 94 Resp: 16 Temp: 02 Sat: 96 ECG Mon: 4. Pain Intensity: 6 5. Fall Risk: Dizziness: N Needs help standing or walking: N Fallen in the last 3 months: N Fall risk comments: 6. Patient on Blood Thinner: None 7. History of Hypertension: N 8. Opioid Therapy greater than 6 weeks: Y Opiate Contract Signed: 03/24/16 9. Risk Assessment Tool Provided: low risk-1 10. Functional Assessment Tool: 11. Recreational Drug Use: Never Drug Type: Tobacco Use: Never Smoker Tobacco Type: Amount or Packs/day: How Many Years: Alcohol Use: No Frequency: Quant:
== END | disposition home or self-care (01) ==
LOC: PAIN 06:50
PROVIDERS: ATTEND Anesthesiology Pain Medicine
DX: Z45.1 Encounter for adjustment and management of infusion pump (principal); G89.4 Chronic pain syndrome; M96.1 Postlaminectomy syndrome, not elsewhere classified; M19.90 Unspecified osteoarthritis, unspecified site; F32.89 Other specified depressive episodes; F41.9 Anxiety disorder, unspecified; F51.04 Psychophysiologic insomnia; Z98.890 Other specified postprocedural states; Z79.899 Other long term (current) drug therapy; Z79.891 Long term (current) use of opiate analgesic

== ENCOUNTER → 2020-03-07 | Outpatient (CLI) | payer OTHER, BC ==
[~2020-03-07] VITALS: Ht 157.5 cm; Wt 78.2 kg
[~2020-03-07] MED LIST changes: +ALPRAZOLAM 0.50.5 M1 PO
[2020-03-07 12:51] VITALS: BP 125/72
--- NOTE | 2020-03-07 12:59 | NUR ---
Pain Clinic Assessment: 1. History of Osteoarthritis: Left Lower Extremity Left Upper Extremity Right Upper Extremity Right Lower Extremity lynne knees History of Rheumatoid Arthritis: DENIES 2. Height: 5 ft. 2 in. 157.5 cm. Weight: 172.4 lb. oz. 78.200 kg. Patient's BMI: 31.5 3. Vital Signs: BP: 125/72 Pulse: 80 Resp: 20 Temp: 02 Sat: 98 ECG Mon: 4. Pain Intensity: 6 5. Fall Risk: Dizziness: N Needs help standing or walking: N Fallen in the last 3 months: N Fall risk comments: 6. Patient on Blood Thinner: None 7. History of Hypertension: N 8. Opioid Therapy greater than 6 weeks: Y Opiate Contract Signed: 03/24/16 9. Risk Assessment Tool Provided: low risk-1 10. Functional Assessment Tool: 11. Recreational Drug Use: Never Drug Type: Tobacco Use: Never Smoker Tobacco Type: Amount or Packs/day: How Many Years: Alcohol Use: No Frequency: Quant:
== END | disposition home or self-care (01) ==
LOC: PAIN 07:03
PROVIDERS: ATTEND Anesthesiology Pain Medicine
DX: Z45.1 Encounter for adjustment and management of infusion pump (principal); M96.1 Postlaminectomy syndrome, not elsewhere classified; M54.16 Radiculopathy, lumbar region; M19.90 Unspecified osteoarthritis, unspecified site; G89.29 Other chronic pain; Z98.890 Other specified postprocedural states; Z79.899 Other long term (current) drug therapy; Z79.891 Long term (current) use of opiate analgesic

== ENCOUNTER → 2020-03-25 | Outpatient (CLI) | payer OTHER, BC ==
[~2020-03-25] VITALS: Ht 157.5 cm; Wt 75.6 kg
[2020-03-25 13:09] VITALS: BP 112/76
--- NOTE | 2020-03-25 13:18 | NUR ---
Pain Clinic Assessment: 1. History of Osteoarthritis: Left Lower Extremity Left Upper Extremity Right Upper Extremity Right Lower Extremity lynne knees History of Rheumatoid Arthritis: DENIES 2. Height: 5 ft. 2 in. 157.5 cm. Weight: 166.6 lb. oz. 75.569 kg. Patient's BMI: 30.5 3. Vital Signs: BP: 112/76 Pulse: 65 Resp: 20 Temp: 02 Sat: 98 ECG Mon: 4. Pain Intensity: 5 5. Fall Risk: Dizziness: N Needs help standing or walking: N Fallen in the last 3 months: N Fall risk comments: 6. Patient on Blood Thinner: None 7. History of Hypertension: N 8. Opioid Therapy greater than 6 weeks: Y Opiate Contract Signed: 03/24/16 9. Risk Assessment Tool Provided: low risk-1 10. Functional Assessment Tool: 11. Recreational Drug Use: Never Drug Type: Tobacco Use: Never Smoker Tobacco Type: Amount or Packs/day: How Many Years: Alcohol Use: No Frequency: Quant:
== END ==
LOC: PAIN 07:08
PROVIDERS: ATTEND Anesthesiology Pain Medicine
DX: G89.4 Chronic pain syndrome (principal); M17.12 Unilateral primary osteoarthritis, left knee; F41.9 Anxiety disorder, unspecified; F32.9 Major depressive disorder, single episode, unspecified; Z79.899 Other long term (current) drug therapy; Z79.891 Long term (current) use of opiate analgesic; Z96.9 Presence of functional implant, unspecified

== ENCOUNTER → 2020-04-18 | Outpatient (CLI) | payer OTHER, BC ==
[~2020-04-18] VITALS: Ht 157.5 cm; Wt 76.7 kg
[2020-04-18 13:38] VITALS: BP 132/58
--- NOTE | 2020-04-19 08:33 | HPC ---
[facility] [address] [place] [address] PAIN MANAGEMENT CONSULTATION Name: SURENDRA DILLON Room #: REG YUMIKO AdrianaGinaWalker#: [id number] Admission: 04/18/20 Attend Phys: Kyra Reyes Discharge: Date of : 49 Report #: [id number] THIS REPORT FOR: cc: Judie Mckoy MD, Janice K. MD Hocker,Kyra Cha DATE OF SERVICE: 04/18/2020 CHIEF COMPLAINT: Chronic pain, status post laminectomy; management of intrathecal infusion pump; chronic anxiety. HISTORY OF PRESENT ILLNESS: This is a 74-year-old female who returns to the pain clinic today with her daughter. Today, the patient is reporting a pain score of 7-8/10 today. She reports most significant pain is located in her lower back as well as in her left knee. She recently had this replaced about 3 weeks ago. She is doing quite well from the standpoint of her knee replacement. She has good range of motion and very minimal swelling in her left knee today. She does utilize a walker. She reports since her surgery she has been having increasing back pain that is sharp, aching sensation and feels that she needs an intrathecal pump adjustment possibly today. The patient reports that she did not have good pain control postoperatively while in the hospital. Unfortunately, the pain team did not call to discuss the case with Dr. Ponce which he had hoped that they would do. Because of this increased pain postoperatively, the patient is reluctant to have her right knee replaced in the future. Today, the patient is reporting she has restarted her mirtazapine half a tablet at night and believes that was helpful with her sleep as well as some of her depression and anxiety that she has been experiencing. In her last visit with Dr. Ponce, she had stopped taking that medication, but would like a new prescription. She does walls anxiety and depression and does take Prozac [address] Ponce did provide her with alprazolam, she is taking that very sparingly and in the last month utilizing it 3 times. ALLERGIES: No known drug allergies. CURRENT LIST OF MEDICATIONS: Remeron 7.5 mg at bedtime, alprazolam p.r.n., Prozac 10 mg daily, OxyIR 10 mg t.i.d. p.r.n., methadone 5 mg b.i.d., aspirin, Drisdol, valacyclovir, probiotic and Synthroid. PATIENT'S PQRS: 1. She has a history of osteoarthritis in her upper and lower extremities as well as her spine. Denies any rheumatoid arthritis. 2. Height is 5 feet 2 inches, weight is 169, BMI is 30. 3. Vital signs: Blood pressure 132/58, pulse is 78, respirations 16, oxygen [facility] [address] [place] [address] PAIN MANAGEMENT CONSULTATION Name: SURENDRA DILLON Room #: REG [facility].#: [id number] Admission: 04/18/20 Attend Phys: Kyra Reyes Discharge: Date of : 49 Report #: [id number] sat is 96%. 4. Pain score is 7-8. 5. Denies dizziness. Does need assistance with ambulation. She is utilizing a walker today and has not fallen in the last 3 months. 6. The patient is not on any blood thinners or medication for hypertension. 7. Opioid therapy is greater than 6 weeks; therefore, an opioid signed contract is on the chart. Risk assessment is low. Functional assessment is 52/70. 8. Recreational drug use, she denies. She is not a smoker and does not drink alcohol. According to the prescription monitoring system, she is due to fill her medications next week. She did not obtain any postoperative opioids as a result of her total knee replacement. Her morphine milliequivalent according to the CDC guidelines is less than 60, though she does have an intrathecal infusion pump that is infusing hydromorphone, clonidine and fentanyl at a rate of 1.01 mg of hydromorphone, 25.4 mcg of clonidine a day and fentanyl 126.99 mcg a day. PHYSICAL EXAMINATION: GENERAL: This is alert and orientated, very anxious 74-year-old who presents with her daughter today. She is well-developed, well-nourished, alert and oriented, rating her pain score at 7-8. HEENT: Normocephalic, atraumatic. Extraocular eye muscles are intact. She is wearing a mask. NECK: Without JVD or adenopathy. LUNGS: No respiratory distress. No shortness of breath noted. Oxygen saturation at 96%. EXTREMITIES: 1+ edema in her left total knee as well as her right lower extremity. MUSCULOSKELETAL: Tenderness in her lumbosacral region that does radiate down her legs. She has a dressing over her left knee, which does not visualize her new incision. She has scars in her back from her previous surgery and her intrathecal pump is in her abdomen. IMPRESSION: 1. Chronic intractable pain, post-thoracic laminectomy and fusion. 2. Osteoarthritis of the left knee with recent total knee replacement. 3. Management of high risk medication and complicated medications under written opioid agreement. 4. Chronic anxiety and depression. 5. Management of intrathecal infusion pump. PLAN: 1. We discussed treatment options with the patient today. At first, the patient thought she would like increase in her intrathecal pump and then after much discussion today she has decided to wait at least another week. We did discuss how her back may be irritated from her surgery and the positions that [facility] [address] [place] [address] PAIN MANAGEMENT CONSULTATION Name: SURENDRA DILLON Room #: REG YUMIKO Reina#: [id number] Admission: 04/18/20 Attend Phys: Kyra Reyes Discharge: Date of : 49 Report #: [id number] she was in. She states that she has had good days and bad days postoperatively and has decided to wait another week, but would like to make an appointment in case she needs an adjustment. 2. We will refill her methadone 5 mg tablets b.i.d., #60. They will be released next week along with her oxycodone 10 mg tablets, #90. These will be sent electronically by Dr. Ponce. 3. The patient states she has restarted her mirtazapine 7.5 at night. She has found this beneficial in helping with her depression and sleep in the past and has restarted this medication. Scripts will be sent for 30 tablets, 15 mg. The patient will take half to one. We did discuss not increasing her Prozac more than 10 mg that she is currently on. The patient has not been utilizing her alprazolam medication on a daily basis, very sparingly uses this medication. We encouraged her to keep ice on her knee after her physical therapy and utilize this on her back as well during this postoperative phase. 4. Appointment made for followup in 1 week. The patient may cancel if she is doing well. Her intrathecal pump is scheduled to be refilled in May. The patient is seen today in collaboration with Dr. Morris Ponce. Time spent with the patient in consultation, reviewing imaging, recent studies and clinical notes, physical examination in correlation of physical findings and medical documentation, determine treatment of 22 minutes. Time spent in preparation for appointment, reviewing prescription monitoring system, reviewing previous records and treatment options and reviewing current medications 5 minutes. Time spent preparing and sending electronic prescriptions with collaborating physician, Dr. Ponce and documentation of this visit 8 minutes. Total time spent 35 minutes. <ELECTRONICALLY SIGNED> By: Kyra Reyes 04/19/20 [id number] Kyra Reyes /nt
== END ==
LOC: PAIN 04-15 06:46
PROVIDERS: ATTEND Clinical Nurse Specialist Adult Health
DX: G89.29 Other chronic pain (principal); M96.1 Postlaminectomy syndrome, not elsewhere classified; F41.9 Anxiety disorder, unspecified; M17.12 Unilateral primary osteoarthritis, left knee; Z96.652 Presence of left artificial knee joint; F11.20 Opioid dependence, uncomplicated; F41.8 Other specified anxiety disorders

== ENCOUNTER → 2020-04-25 | Outpatient (CLI) | payer OTHER, BC ==
[~2020-04-25] VITALS: Ht 157.5 cm; Wt 76.9 kg
[2020-04-25 13:29] VITALS: BP 134/75
--- NOTE | 2020-04-25 13:33 | NUR ---
Pain Clinic Assessment: 1. History of Osteoarthritis: Left Lower Extremity Left Upper Extremity Right Upper Extremity Right Lower Extremity lynne knees History of Rheumatoid Arthritis: DENIES 2. Height: 5 ft. 2 in. 157.5 cm. Weight: 169.6 lb. oz. 76.930 kg. Patient's BMI: 31.0 3. Vital Signs: BP: 134/75 Pulse: 72 Resp: 20 Temp: 02 Sat: 98 ECG Mon: 4. Pain Intensity: 5-6 5. Fall Risk: Dizziness: N Needs help standing or walking: N Fallen in the last 3 months: N Fall risk comments: 6. Patient on Blood Thinner: None 7. History of Hypertension: N 8. Opioid Therapy greater than 6 weeks: Y Opiate Contract Signed: 03/24/16 9. Risk Assessment Tool Provided: low risk-1 10. Functional Assessment Tool: 11. Recreational Drug Use: Never Drug Type: Tobacco Use: Never Smoker Tobacco Type: Amount or Packs/day: How Many Years: Alcohol Use: No Frequency: Quant:
== END | disposition home or self-care (01) ==
LOC: PAIN 06:45
PROVIDERS: ATTEND Clinical Nurse Specialist Adult Health
DX: G89.29 Other chronic pain (principal); M96.1 Postlaminectomy syndrome, not elsewhere classified; M54.16 Radiculopathy, lumbar region; F41.9 Anxiety disorder, unspecified; F32.9 Major depressive disorder, single episode, unspecified; Z79.82 Long term (current) use of aspirin; Z79.899 Other long term (current) drug therapy

== ENCOUNTER → 2020-05-09 | Outpatient (CLI) | payer OTHER, BC ==
[~2020-05-09] VITALS: Ht 157.5 cm; Wt 73.8 kg
[2020-05-09 12:51] VITALS: BP 120/71
--- NOTE | 2020-05-09 13:03 | NUR ---
Pain Clinic Assessment: 1. History of Osteoarthritis: Left Lower Extremity Left Upper Extremity Right Upper Extremity Right Lower Extremity lynne knees History of Rheumatoid Arthritis: DENIES 2. Height: 5 ft. 2 in. 157.5 cm. Weight: 162.6 lb. oz. 73.755 kg. Patient's BMI: 29.7 3. Vital Signs: BP: 120/71 Pulse: 64 Resp: 16 Temp: 02 Sat: 99 ECG Mon: 4. Pain Intensity: 3 5. Fall Risk: Dizziness: N Needs help standing or walking: N Fallen in the last 3 months: N Fall risk comments: 6. Patient on Blood Thinner: None 7. History of Hypertension: N 8. Opioid Therapy greater than 6 weeks: Y Opiate Contract Signed: 03/24/16 9. Risk Assessment Tool Provided: low risk-1 10. Functional Assessment Tool: 11. Recreational Drug Use: Never Drug Type: Tobacco Use: Never Smoker Tobacco Type: Amount or Packs/day: How Many Years: Alcohol Use: No Frequency: Quant:
== END ==
LOC: PAIN 06:59
PROVIDERS: ATTEND Clinical Nurse Specialist Adult Health
DX: G89.29 Other chronic pain (principal); F41.9 Anxiety disorder, unspecified; M96.1 Postlaminectomy syndrome, not elsewhere classified; M54.16 Radiculopathy, lumbar region; F11.20 Opioid dependence, uncomplicated; M17.12 Unilateral primary osteoarthritis, left knee; Z88.8 Allergy status to other drugs, medicaments and biological substances; Z79.899 Other long term (current) drug therapy

== ENCOUNTER → 2020-05-16 | Outpatient (CLI) | payer OTHER, BC ==
[~2020-05-16] VITALS: Ht 157.5 cm; Wt 73.4 kg
[2020-05-16 12:55] VITALS: BP 111/54
--- NOTE | 2020-05-16 13:03 | NUR ---
Pain Clinic Assessment: 1. History of Osteoarthritis: Left Lower Extremity Left Upper Extremity Right Upper Extremity Right Lower Extremity lynne knees History of Rheumatoid Arthritis: DENIES 2. Height: 5 ft. 2 in. 157.5 cm. Weight: 161.8 lb. oz. 73.392 kg. Patient's BMI: 29.6 3. Vital Signs: BP: 111/54 Pulse: 68 Resp: 16 Temp: 02 Sat: 100 ECG Mon: 4. Pain Intensity: 5-6 W/ACTIVITY 5. Fall Risk: Dizziness: N Needs help standing or walking: N Fallen in the last 3 months: N Fall risk comments: 6. Patient on Blood Thinner: None 7. History of Hypertension: N 8. Opioid Therapy greater than 6 weeks: Y Opiate Contract Signed: 03/24/16 9. Risk Assessment Tool Provided: low risk-1 10. Functional Assessment Tool: 11. Recreational Drug Use: Never Drug Type: Tobacco Use: Never Smoker Tobacco Type: Amount or Packs/day: How Many Years: Alcohol Use: No Frequency: Quant:
== END | disposition home or self-care (01) ==
LOC: PAIN 06:51
PROVIDERS: ATTEND Anesthesiology Pain Medicine
DX: Z45.1 Encounter for adjustment and management of infusion pump (principal); G89.29 Other chronic pain; M19.90 Unspecified osteoarthritis, unspecified site; F32.9 Major depressive disorder, single episode, unspecified; F41.8 Other specified anxiety disorders; Z79.891 Long term (current) use of opiate analgesic; Z98.890 Other specified postprocedural states; Z79.899 Other long term (current) drug therapy

== ENCOUNTER → 2020-07-04 | Outpatient (CLI) | payer OTHER, BC ==
[~2020-07-04] VITALS: Ht 160 cm; Wt 67.9 kg
[2020-07-04 10:54] VITALS: BP 109/64
--- NOTE | 2020-07-04 11:02 | NUR ---
Pain Clinic Assessment: 1. History of Osteoarthritis: Left Lower Extremity Left Upper Extremity Right Upper Extremity Right Lower Extremity lynne knees History of Rheumatoid Arthritis: DENIES 2. Height: 5 ft. 3 in. 160.0 cm. Weight: 149.8 lb. oz. 67.949 kg. Patient's BMI: 26.5 3. Vital Signs: BP: 109/64 Pulse: 72 Resp: 14 Temp: 02 Sat: 100 ECG Mon: 4. Pain Intensity: 4 5. Fall Risk: Dizziness: N Needs help standing or walking: N Fallen in the last 3 months: N Fall risk comments: 6. Patient on Blood Thinner: None 7. History of Hypertension: N 8. Opioid Therapy greater than 6 weeks: Y Opiate Contract Signed: 03/24/16 9. Risk Assessment Tool Provided: low risk-1 10. Functional Assessment Tool: 11. Recreational Drug Use: Never Drug Type: Tobacco Use: Never Smoker Tobacco Type: Amount or Packs/day: How Many Years: Alcohol Use: No Frequency: Quant:
== END | disposition home or self-care (01) ==
LOC: PAIN 07:05
PROVIDERS: ATTEND Anesthesiology Pain Medicine
DX: Z45.1 Encounter for adjustment and management of infusion pump (principal); G89.29 Other chronic pain; M54.9 Dorsalgia, unspecified; M96.1 Postlaminectomy syndrome, not elsewhere classified; F32.89 Other specified depressive episodes; F41.8 Other specified anxiety disorders; M17.12 Unilateral primary osteoarthritis, left knee; Z96.652 Presence of left artificial knee joint; Z98.890 Other specified postprocedural states; Z79.899 Other long term (current) drug therapy; Z87.891 Personal history of nicotine dependence

== ENCOUNTER → 2020-07-25 | Outpatient (CLI) | payer OTHER, BC ==
[~2020-07-25] VITALS: Ht 160 cm; Wt 68.5 kg
[2020-07-25 11:32] VITALS: BP 126/64
--- NOTE | 2020-07-25 11:39 | NUR ---
Pain Clinic Assessment: 1. History of Osteoarthritis: Left Lower Extremity Left Upper Extremity Right Upper Extremity Right Lower Extremity lynne knees History of Rheumatoid Arthritis: DENIES 2. Height: 5 ft. 3 in. 160.0 cm. Weight: 151.0 lb. oz. 68.493 kg. Patient's BMI: 26.8 3. Vital Signs: BP: 126/64 Pulse: 85 Resp: 16 Temp: 02 Sat: 97 ECG Mon: 4. Pain Intensity: 6 5. Fall Risk: Dizziness: N Needs help standing or walking: N Fallen in the last 3 months: N Fall risk comments: 6. Patient on Blood Thinner: None 7. History of Hypertension: N 8. Opioid Therapy greater than 6 weeks: Y Opiate Contract Signed: 03/24/16 9. Risk Assessment Tool Provided: low risk-1 10. Functional Assessment Tool: 11. Recreational Drug Use: Never Drug Type: Tobacco Use: Never Smoker Tobacco Type: Amount or Packs/day: How Many Years: Alcohol Use: No Frequency: Quant:
== END | disposition home or self-care (01) ==
LOC: PAIN 07:06
PROVIDERS: ATTEND Clinical Nurse Specialist Adult Health
DX: Z45.1 Encounter for adjustment and management of infusion pump (principal); G89.29 Other chronic pain; M96.1 Postlaminectomy syndrome, not elsewhere classified; M19.90 Unspecified osteoarthritis, unspecified site; F32.9 Major depressive disorder, single episode, unspecified; F41.9 Anxiety disorder, unspecified; M17.12 Unilateral primary osteoarthritis, left knee; Z96.652 Presence of left artificial knee joint; Z98.890 Other specified postprocedural states; Z79.891 Long term (current) use of opiate analgesic; Z79.899 Other long term (current) drug therapy

== ENCOUNTER → 2020-08-08 | Outpatient (CLI) | payer OTHER, BC ==
[~2020-08-08] VITALS: Ht 157.5 cm; Wt 64.7 kg
[2020-08-08 11:31] VITALS: BP 119/65
--- NOTE | 2020-08-08 11:41 | NUR ---
Pain Clinic Assessment: 1. History of Osteoarthritis: Left Lower Extremity Left Upper Extremity Right Upper Extremity Right Lower Extremity lynne knees History of Rheumatoid Arthritis: DENIES 2. Height: 5 ft. 2 in. 157.5 cm. Weight: 142.6 lb. oz. 64.683 kg. Patient's BMI: 26.1 3. Vital Signs: BP: 119/65 Pulse: 69 Resp: 18 Temp: 02 Sat: 97 ECG Mon: 4. Pain Intensity: 3-4 BACK; 5-6 STOMACH 5. Fall Risk: Dizziness: N Needs help standing or walking: N Fallen in the last 3 months: N Fall risk comments: NO CONCERNS NOTED 6. Patient on Blood Thinner: None 7. History of Hypertension: N 8. Opioid Therapy greater than 6 weeks: Y Opiate Contract Signed: 03/24/16 9. Risk Assessment Tool Provided: low risk-1 10. Functional Assessment Tool: 11. Recreational Drug Use: Never Drug Type: Tobacco Use: Never Smoker Tobacco Type: Amount or Packs/day: How Many Years: Alcohol Use: No Frequency: Quant:
== END | disposition home or self-care (01) ==
LOC: PAIN 07:05
PROVIDERS: ATTEND Clinical Nurse Specialist Adult Health
DX: Z45.1 Encounter for adjustment and management of infusion pump (principal); M54.9 Dorsalgia, unspecified; M96.1 Postlaminectomy syndrome, not elsewhere classified; G89.29 Other chronic pain; F32.9 Major depressive disorder, single episode, unspecified; F41.9 Anxiety disorder, unspecified; M19.90 Unspecified osteoarthritis, unspecified site; Z98.890 Other specified postprocedural states; Z79.899 Other long term (current) drug therapy; Z96.652 Presence of left artificial knee joint; Z79.891 Long term (current) use of opiate analgesic

== ENCOUNTER → 2020-09-16 | Outpatient (CLI) | payer OTHER, BC ==
[~2020-09-16] VITALS: Ht 160 cm; Wt 64.8 kg
[2020-09-16 11:00] VITALS: BP 100/64
--- NOTE | 2020-09-16 11:21 | NUR ---
Pain Clinic Assessment: 1. History of Osteoarthritis: Left Lower Extremity Left Upper Extremity Right Upper Extremity Right Lower Extremity lynne knees History of Rheumatoid Arthritis: DENIES 2. Height: 5 ft. 3 in. 160.0 cm. Weight: 142.8 lb. oz. 64.774 kg. Patient's BMI: 25.3 3. Vital Signs: BP: 100/64 Pulse: 89 Resp: 16 Temp: 02 Sat: 96 ECG Mon: 4. Pain Intensity: 4 5. Fall Risk: Dizziness: N Needs help standing or walking: N Fallen in the last 3 months: N Fall risk comments: NO CONCERNS NOTED 6. Patient on Blood Thinner: None 7. History of Hypertension: N 8. Opioid Therapy greater than 6 weeks: Y Opiate Contract Signed: 03/24/16 9. Risk Assessment Tool Provided: low risk-1 10. Functional Assessment Tool: 11. Recreational Drug Use: Never Drug Type: Tobacco Use: Never Smoker Tobacco Type: Amount or Packs/day: How Many Years: Alcohol Use: No Frequency: Quant:
== END | disposition home or self-care (01) ==
LOC: PAIN 07:05
PROVIDERS: ATTEND Anesthesiology Pain Medicine
DX: Z45.1 Encounter for adjustment and management of infusion pump (principal); M96.1 Postlaminectomy syndrome, not elsewhere classified; M54.9 Dorsalgia, unspecified; G89.29 Other chronic pain; F32.9 Major depressive disorder, single episode, unspecified; F41.9 Anxiety disorder, unspecified; M19.90 Unspecified osteoarthritis, unspecified site; Z98.890 Other specified postprocedural states; Z79.899 Other long term (current) drug therapy; Z79.891 Long term (current) use of opiate analgesic

== ENCOUNTER → 2020-09-20 | Outpatient (CLI) | payer OTHER, BC ==
[~2020-09-20] VITALS: Ht 160 cm; Wt 65.9 kg
[2020-09-20 10:35] VITALS: BP 107/64
--- NOTE | 2020-09-20 10:40 | NUR ---
Pain Clinic Assessment: 1. History of Osteoarthritis: Left Lower Extremity Left Upper Extremity Right Upper Extremity Right Lower Extremity lynne knees History of Rheumatoid Arthritis: DENIES 2. Height: 5 ft. 3 in. 160.0 cm. Weight: 145.2 lb. oz. 65.862 kg. Patient's BMI: 25.7 3. Vital Signs: BP: 107/64 Pulse: 70 Resp: 16 Temp: 02 Sat: 99 ECG Mon: 4. Pain Intensity: 3-4 WITH MEDS 5. Fall Risk: Dizziness: N Needs help standing or walking: N Fallen in the last 3 months: N Fall risk comments: NO CONCERNS NOTED 6. Patient on Blood Thinner: None 7. History of Hypertension: N 8. Opioid Therapy greater than 6 weeks: Y Opiate Contract Signed: 03/24/16 9. Risk Assessment Tool Provided: low risk-1 10. Functional Assessment Tool: 11. Recreational Drug Use: Never Drug Type: Tobacco Use: Never Smoker Tobacco Type: Amount or Packs/day: How Many Years: Alcohol Use: No Frequency: Quant:
== END | disposition home or self-care (01) ==
LOC: PAIN 08:34
PROVIDERS: ATTEND Anesthesiology Pain Medicine
DX: M79.18 Myalgia, other site (principal); G89.29 Other chronic pain; I10 Essential (primary) hypertension; E78.5 Hyperlipidemia, unspecified; F32.9 Major depressive disorder, single episode, unspecified; J45.909 Unspecified asthma, uncomplicated; M19.90 Unspecified osteoarthritis, unspecified site; K21.9 Gastro-esophageal reflux disease without esophagitis; Z98.890 Other specified postprocedural states; Z79.899 Other long term (current) drug therapy; Z86.718 Personal history of other venous thrombosis and embolism; Z79.01 Long term (current) use of anticoagulants

== ENCOUNTER → 2020-11-04 | Outpatient (CLI) | payer OTHER, BC ==
[~2020-11-04] VITALS: Ht 152.4 cm; Wt 67.6 kg
[2020-11-04 14:01] VITALS: BP 129/74
--- NOTE | 2020-11-04 14:15 | NUR ---
Pain Clinic Assessment: 1. History of Osteoarthritis: Left Lower Extremity Left Upper Extremity Right Upper Extremity Right Lower Extremity lynne knees History of Rheumatoid Arthritis: DENIES 2. Height: 5 ft. 2 in. 152.4 cm. Weight: 149.0 lb. oz. 67.586 kg. Patient's BMI: 29.1 3. Vital Signs: BP: 129/74 Pulse: 69 Resp: 20 Temp: 02 Sat: 99 ECG Mon: 4. Pain Intensity: 7 WITH MEDS 5. Fall Risk: Dizziness: N Needs help standing or walking: N Fallen in the last 3 months: N Fall risk comments: NO CONCERNS NOTED 6. Patient on Blood Thinner: None 7. History of Hypertension: N 8. Opioid Therapy greater than 6 weeks: Y Opiate Contract Signed: 03/24/16 9. Risk Assessment Tool Provided: low risk-1 10. Functional Assessment Tool: 11. Recreational Drug Use: Never Drug Type: Tobacco Use: Never Smoker Tobacco Type: Amount or Packs/day: How Many Years: Alcohol Use: No Frequency: Quant:
== END ==
LOC: PAIN 13:40
PROVIDERS: ATTEND Clinical Nurse Specialist Adult Health
DX: M96.1 Postlaminectomy syndrome, not elsewhere classified (principal); F41.9 Anxiety disorder, unspecified; F32.9 Major depressive disorder, single episode, unspecified; Z79.899 Other long term (current) drug therapy; Z79.891 Long term (current) use of opiate analgesic

== ENCOUNTER → 2020-12-02 | Outpatient (CLI) | payer OTHER, BC ==
[~2020-12-02] VITALS: Ht 157.5 cm; Wt 69.9 kg
[~2020-12-02] MED LIST changes: +LEXAPRO 10 MG T10 M2 PO; +SENNA PLUS TAB1 EACH PO
[2020-12-02 11:02] VITALS: BP 108/61
--- NOTE | 2020-12-02 11:19 | NUR ---
Pain Clinic Assessment: 1. History of Osteoarthritis: Left Lower Extremity Left Upper Extremity Right Upper Extremity Right Lower Extremity lynne knees History of Rheumatoid Arthritis: DENIES 2. Height: 5 ft. 2 in. 157.5 cm. Weight: 154.0 lb. oz. 69.854 kg. Patient's BMI: 28.2 3. Vital Signs: BP: 108/61 Pulse: 75 Resp: 20 Temp: 02 Sat: 100 ECG Mon: 4. Pain Intensity: 5 with meds 5. Fall Risk: Dizziness: N Needs help standing or walking: N Fallen in the last 3 months: N Fall risk comments: NO CONCERNS NOTED 6. Patient on Blood Thinner: None 7. History of Hypertension: N 8. Opioid Therapy greater than 6 weeks: Y Opiate Contract Signed: 03/24/16 9. Risk Assessment Tool Provided: low risk-1 10. Functional Assessment Tool: 11. Recreational Drug Use: Never Drug Type: Tobacco Use: Never Smoker Tobacco Type: Amount or Packs/day: How Many Years: Alcohol Use: No Frequency: Quant:
== END ==
LOC: PAIN 06:53
PROVIDERS: ATTEND Clinical Nurse Specialist Adult Health
DX: G89.29 Other chronic pain (principal); M96.1 Postlaminectomy syndrome, not elsewhere classified; M19.012 Primary osteoarthritis, left shoulder; M19.011 Primary osteoarthritis, right shoulder; M17.0 Bilateral primary osteoarthritis of knee; F41.8 Other specified anxiety disorders; Z79.899 Other long term (current) drug therapy

== ENCOUNTER → 2020-12-23 | Outpatient (CLI) | payer OTHER, BC ==
[~2020-12-23] VITALS: Ht 162.6 cm; Wt 69.2 kg
[2020-12-23 11:01] VITALS: BP 117/80
== END | disposition home or self-care (01) ==
LOC: PAIN 10:18
PROVIDERS: ATTEND Anesthesiology Pain Medicine
DX: Z45.1 Encounter for adjustment and management of infusion pump (principal); M54.9 Dorsalgia, unspecified; G89.29 Other chronic pain; Z98.890 Other specified postprocedural states; Z79.899 Other long term (current) drug therapy; M96.1 Postlaminectomy syndrome, not elsewhere classified

== ENCOUNTER → 2021-01-09 | Outpatient (CLI) | payer OTHER, BC ==
[~2021-01-09] VITALS: Ht 162.6 cm; Wt 69.9 kg
[2021-01-09 13:10] VITALS: BP 108/68
--- NOTE | 2021-01-09 13:19 | NUR ---
Pain Clinic Assessment: 1. History of Osteoarthritis: Left Lower Extremity Left Upper Extremity Right Upper Extremity Right Lower Extremity lynne knees History of Rheumatoid Arthritis: DENIES 2. Height: 5 ft. 4 in. 162.6 cm. Weight: 154.0 lb. oz. 69.854 kg. Patient's BMI: 26.4 3. Vital Signs: BP: 108/68 Pulse: 81 Resp: 16 Temp: 02 Sat: 100 ECG Mon: 4. Pain Intensity: 4 5. Fall Risk: Dizziness: N Needs help standing or walking: N Fallen in the last 3 months: N Fall risk comments: NO CONCERNS NOTED 6. Patient on Blood Thinner: None 7. History of Hypertension: N 8. Opioid Therapy greater than 6 weeks: Y Opiate Contract Signed: 03/24/16 9. Risk Assessment Tool Provided: low risk-1 10. Functional Assessment Tool: 11. Recreational Drug Use: Never Drug Type: Tobacco Use: Never Smoker Tobacco Type: Amount or Packs/day: How Many Years: Alcohol Use: No Frequency: Quant:
== END | disposition home or self-care (01) ==
LOC: PAIN 11:06
PROVIDERS: ATTEND Anesthesiology Pain Medicine
DX: M25.511 Pain in right shoulder (principal); M19.011 Primary osteoarthritis, right shoulder; M96.1 Postlaminectomy syndrome, not elsewhere classified; F41.9 Anxiety disorder, unspecified; G47.00 Insomnia, unspecified; G89.29 Other chronic pain; M19.90 Unspecified osteoarthritis, unspecified site; Z98.890 Other specified postprocedural states; Z79.899 Other long term (current) drug therapy

== ENCOUNTER → 2021-03-06 | Outpatient (CLI) | payer OTHER, BC ==
[~2021-03-06] VITALS: Ht 162.6 cm; Wt 70.0 kg
[~2021-03-06] MED LIST changes: +EXCEDRIN; +LEXAPRO 10 MG T10 M1 PO
[2021-03-06 12:57] VITALS: BP 120/80
--- NOTE | 2021-03-06 13:16 | NUR ---
Pain Clinic Assessment: 1. History of Osteoarthritis: Left Lower Extremity Left Upper Extremity Right Upper Extremity Right Lower Extremity lynne knees History of Rheumatoid Arthritis: DENIES 2. Height: 5 ft. 4 in. 162.6 cm. Weight: 154.4 lb. oz. 70.035 kg. Patient's BMI: 26.5 3. Vital Signs: BP: 120/80 Pulse: 86 Resp: 14 Temp: 02 Sat: 96 ECG Mon: 4. Pain Intensity: 6 5. Fall Risk: Dizziness: N Needs help standing or walking: N Fallen in the last 3 months: N Fall risk comments: NO CONCERNS NOTED 6. Patient on Blood Thinner: None 7. History of Hypertension: N 8. Opioid Therapy greater than 6 weeks: Y Opiate Contract Signed: 03/24/16 9. Risk Assessment Tool Provided: low risk-1 10. Functional Assessment Tool: 11. Recreational Drug Use: Never Drug Type: Tobacco Use: Never Smoker Tobacco Type: Amount or Packs/day: How Many Years: Alcohol Use: No Frequency: Quant:
== END | disposition home or self-care (01) ==
LOC: PAIN 10:18
PROVIDERS: ATTEND Anesthesiology Pain Medicine
DX: Z45.1 Encounter for adjustment and management of infusion pump (principal); G89.29 Other chronic pain; M96.1 Postlaminectomy syndrome, not elsewhere classified; M19.90 Unspecified osteoarthritis, unspecified site; Z98.890 Other specified postprocedural states; Z79.899 Other long term (current) drug therapy

== ENCOUNTER → 2021-03-31 | Outpatient (CLI) | payer OTHER, BC ==
[~2021-03-31] VITALS: Ht 165.1 cm; Wt 75.8 kg
[2021-03-31 12:41] VITALS: BP 1343/75
--- NOTE | 2021-03-31 12:44 | NUR ---
Pain Clinic Assessment: 1. History of Osteoarthritis: Left Lower Extremity Left Upper Extremity Right Upper Extremity Right Lower Extremity lynne knees History of Rheumatoid Arthritis: DENIES 2. Height: 5 ft. 4 in. 165.1 cm. Weight: 167.0 lb. oz. 75.751 kg. Patient's BMI: 27.8 3. Vital Signs: BP: 1343/75 Pulse: 79 Resp: 16 Temp: 02 Sat: 97 ECG Mon: 4. Pain Intensity: 4 5. Fall Risk: Dizziness: N Needs help standing or walking: N Fallen in the last 3 months: N Fall risk comments: NO CONCERNS NOTED 6. Patient on Blood Thinner: None 7. History of Hypertension: N 8. Opioid Therapy greater than 6 weeks: Y Opiate Contract Signed: 03/24/16 9. Risk Assessment Tool Provided: low risk-1 10. Functional Assessment Tool: 11. Recreational Drug Use: Never Drug Type: Tobacco Use: Never Smoker Tobacco Type: Amount or Packs/day: How Many Years: Alcohol Use: No Frequency: Quant:
== END | disposition home or self-care (01) ==
LOC: PAIN 10:29
PROVIDERS: ATTEND Anesthesiology Pain Medicine
DX: Z45.1 Encounter for adjustment and management of infusion pump (principal); G89.29 Other chronic pain; M96.1 Postlaminectomy syndrome, not elsewhere classified; M19.90 Unspecified osteoarthritis, unspecified site; Z98.890 Other specified postprocedural states; Z79.899 Other long term (current) drug therapy; Z87.891 Personal history of nicotine dependence